=== PATIENT | male | born 1960 | race Two or more races ===

== ENCOUNTER 2024-11-18 02:12 | Inpatient (IN) | payer MEDICARE, SELFPAY ==
[2024-11-18] VITALS (120 sets, daily range): BP systolic 74–162; BP diastolic 43–83; PULSE 43–88; RESP 12–34; TEMP 35.3–36.8; O2SAT 85–100; BMI 28.6
--- NOTE | 2024-11-18 02:19 | EKG_ITS ---
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
--- NOTE | 2024-11-18 02:25 | PD.EDCPR ---
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 Per EMS, patient was found unresponsive and pulseless. Patient's contacted EMS afetr she heard patient gasping for air while asleep. Patient was in V-fib and shocked once, given 1 round of epinephrine, and Amiodarone 300 mg en route. LKWT was approximately 2200 hours when he went to bed. Patient arrived with active BVM O2 administration. No other concerns or complaints expressed at this time. Related Data Home Medications ?Medication ?Instructions ?Recorded ?Confirmed Lisinopril/Hydrochlorothiazide * 10 mg PO QAM #0 tabs 11/29/15 10/12/23 (PRINZIDE *) Previous Rx's ?Medication ?Instructions ?Recorded aspirin 81 mg tablet,delayed 81 mg PO QDAY #30 tabs 10/12/23 release atorvastatin 40 mg tablet 40 mg PO HS #30 tabs 10/12/23 clopidogrel 75 mg tablet 75 mg PO QDAY #30 tabs 10/12/23 insulin degludec 100 unit/mL (3 20 unit (0.2 mL) subcut QDAY #15 mL 10/12/23 mL) subcutaneous pen (Tresiba FlexTouch U-100 insulin) metformin 1,000 mg tablet 1,000 mg PO BID #60 tabs 10/12/23 pen needle, diabetic 31 gauge x #100 ea 10/12/23 1/ Allergies Allergy/AdvReac Type Severity Reaction Status Date / Time No Known Allergies Allergy Unverified 10/10/23 08:06 Review of Systems Review of Systems Systems Reviewed: All systems reviewed, normal except as documented Past Medical History Past Medical History CARDIAC: Positive Hypercholesterolemia and Hypertension ENDOCRINE: Positive Diabetes Mellitus Type 2 ED Exam Narrative Physical exam: GENERAL APPEARANCE: Unresponsive, BVM O2 in progress HEENT: Normocephalic, atraumatic; pupils 9 mm fixed, absent corneal reflex, lips cyanotic NECK: Supple LUNGS: No spontaneous respirations, ventilated via BVM, breath sounds clear bilaterally with ventilation HEART: Present cardiac sounds, good pulse ABDOMEN: Mildly distended; soft EXTREMITIES: atraumatic; cyanotic NEUROLOGIC: Obtunded, unresponsive, no response to painful stimuli SKIN: Cool, mottled, cyanotic Course Course Course Narrative: CXR is ordered for determining the etiology of chest pain. Quality Measures none Orders Category Date Time Status Bedside COVID-19 Antigen Test NOW Care 11/18/24 02:49 Completed Continuity Editor NOW Care 11/18/24 02:28 Active EKG (ED ONLY) *Do not use* NOW Care 11/18/24 02:19 Completed EKG (ED ONLY) *Do not use* NOW Care 11/18/24 02:28 Completed Emergency Titration Protocol Stat Care 11/18/24 04:08 Ordered Ballard [Urinary Catheter] QS Care 11/18/24 02:34 Active Insert NG / OG tube NOW Care 11/18/24 03:15 Active Intubation NOW Care 11/18/24 02:[address] head/brain wo con Stat Exams 11/18/24 03:07 Ordered EKG (ED Only) Stat Exams 11/18/24 02:19 Ordered EKG (ED Only) Stat Exams 11/18/24 02:28 Ordered XR chest 1V post procedure Stat Exams 11/18/24 02:28 Taken Arterial Blood Gas Stat Lab 11/18/24 02:47 Completed B-Type Natriuretic Peptide Stat Lab 11/18/24 02:29 Completed CBC Stat Lab 11/18/24 02:29 Completed Comprehensive Metabolic Panel Stat Lab 11/18/24 02:29 Completed Lipase Stat Lab 11/18/24 02:29 Completed Magnesium Stat Lab 11/18/24 02:29 Completed Partial Thromboplastin Time Stat Lab 11/18/24 02:29 [address] Review Blood Smear Stat Lab 11/18/24 02:29 Completed Prothrombin Time with INR Stat Lab 11/18/24 02:29 Completed Sputum Culture and Gram Stain Stat Lab 11/18/24 02:40 Received Troponin I Stat Lab 11/18/24 02:29 Completed Amiodarone 360 mg Ivpb [Nexterone Ivpb] Med 11/18/24 02:22 Active 360 mg in 200 ml IV 16.667 mls/hr Midazolam Inj [Versed Inj] Med 11/18/24 03:55 Discontinued 2 mg IVP X1 ONE Midazolam Inj [Versed Inj] Med 11/18/24 02:19 Discontinued 5 mg IVP X1 ONE Midazolam/Ns 100 mg Ivpb [Versed Pf Inj in Ns Premix] Med 11/18/24 02:22 Active 100 mg in 100 ml IV 1 mg/hr Sodium Chloride 0.9% 1000 ml [Ns] 1,000 ml Med 11/18/24 03:14 Discontinued IV 999 mls/hr Sodium Chloride 0.9% 1000 ml [Ns] 1,000 ml Med 11/18/24 03:15 Discontinued IV 999 mls/hr fentaNYL 2,500 MCG/250 ML BAG [Sublimaze Inj 2,500 MCG/ Med 11/18/24 04:11 Active 250 ML BAG] 2,500 mcg in 250 ml IV 25 mcg/hr Sputum Induction PRN RT 11/18/24 02:45 Ordered Volume Ventilator Stat RT 11/18/24 02:30 Active Vital Signs Vital signs: Vital Signs Pulse Rate 78 11/18/24 02:14 Respiratory Rate 14 11/18/24 02:14 Pulse Oximetry (%) 100 11/18/24 02:14 Oxygen Delivery Method Mechanical Ventilation 11/18/24 02:14 Fraction of Inspired Oxygen 100 11/18/24 02:14 Procedures -ED Intubation Time out performed: Yes sedative: none Laryngoscope: Robina ET Tube Size: 7.5 ET Tube Uncuffed: Yes Tube Secured Depth (cm): 24 Tube Secured Location: teeth Tube Placement Confirmation: equal breath sounds bilaterally and confirmation by capnometry Cardiac Arrest / CPR MDM Narrative MDM Narrative:: Scribe Attestation: Elizabeth Ware am scribing for and in the presence of Dr. Aguirre. Provider Notation: Although this document has been carefully reviewed, there may still be some phonetic and other typographical errors.? These errors are purely grammatical due to imperfections in the software program and should not be construed in any way to? compromise the substance of the patient's medical care during this visit. Patient data External records reviewed:: [facility] previous records (Reviewed prior ED records from 10/09/23. Patient was seen for Aspiration pneumonia.) and EMS form Clinical information provided by:: EMS Social determinants that could affect healthcare access:: none Patient has the following chronic illnesses:: Hypercholesterolemia, Hypertension, and Diabetes Mellitus Type 2 How is presenting disease/condition affected by chronic disease/condition?: exacerbated by Evaluation data The following diagnostics were reviewed and interpreted by me:: lab results, radiology exam(s) and EKG tracing(s) (EKG manual reading, my interpretation: sinus rhythm, rate: 91 bpm, occasional PVC's, no ST elevation, no acute ischemic changes, interpreted as unremarkable.) Lab and/or radiology exams considered but not ordered:: None Interpretation Summary: RADIOLOGY Pending official radiology report. Medications / Prescriptions Medications or Prescriptions considered but not ordered:: None Medication administrations:: Medication Administration History Acetaminophen (Acetaminophen 325 Mg Tablet) 650 mg PO Q6H PRN PRN Reason: PAIN OR FEVER > 101 Stop: 12/18/24 04:33 Aspirin (Aspirin Ec 81 Mg Tabec) 81 mg PO QDAY MEG Stop: 12/18/24 08:59 Dextrose (Dextrose 50%-Water Inj 50 Ml Syringe) 25 ml IV Q15MIN PRN PRN Reason: BG 50-70 responsive npo pt Stop: 12/18/24 05:10 Dextrose (Dextrose 50%-Water Inj 50 Ml Syringe) 50 ml IV Q15MIN PRN PRN Reason: BG <50 OR BG <70 & pt unresponsive Stop: 12/18/24 05:10 Glucagon (Glucagon Inj 1 Mg Vial) 1 mg IM Q15MIN PRN PRN Reason: BG <70, and no IV access Amiodarone HCl/Dextrose (Nexterone Ivpb) 360 mg in 200 mls @ 16.667 mls/hr IV .Q12H MEG Stop: 11/19/24 02:21 Last Admin: 11/18/24 02:32 Dose: 16.667 mls/hr Documented By: MACEY Midazolam HCl (Versed Pf Inj In Ns Premix) 100 mg in 100 mls @ 1 mls/hr IV .Q24H PRN; Protocol PRN Reason: PER PROTOCOL Stop: 11/23/24 02:21 Last Titration: 11/18/24 04:15 Dose: 10 mg/hr, 10 mls/hr Documented By: Titration: 11/18/24 04:10 Dose: 10 mg/hr, 10 mls/hr Documented By: Titration: 11/18/24 04:05 Dose: 10 mg/hr, 10 mls/hr Documented By: Titration: 11/18/24 04:00 Dose: 8 mg/hr, 8 mls/hr Documented By: Titration: 11/18/24 03:32 Dose: 3 mg/hr, 3 mls/hr Documented By: Titration: 11/18/24 03:27 Dose: 2 mg/hr, 2 mls/hr Documented By: Admin: 11/18/24 02:27 Dose: 1 mg/hr, 1 mls/hr Documented By: EE Co-signed By: CB Fentanyl Citrate (Sublimaze Inj 2,500 Mcg/250 Ml Bag) 2,500 mcg in 250 mls @ 2.5 mls/hr IV .Q24H PRN; Protocol PRN Reason: PER PROTOCOL Stop: 11/23/24 04:10 Last Titration: 11/18/24 04:37 Dose: 300 mcg/hr, 30 mls/hr Documented By: Titration: 11/18/24 04:32 Dose: 250 mcg/hr, 25 mls/hr Documented By: Titration: 11/18/24 04:27 Dose: 200 mcg/hr, 20 mls/hr Documented By: Admin: 11/18/24 04:22 Dose: 25 mcg/hr, 2.5 mls/hr Documented By: EE Co-signed By: CB Norepinephrine/Dextrose (Levophed In D5w 8mg/250ml) 8 mg in 250 mls @ 8.25 mls/hr IV .Q24H PRN; Protocol PRN Reason: PER PROTOCOL Stop: 12/18/24 04:52 Last Titration: 11/18/24 05:15 Dose: 0.09 mcg/kg/min, 14.849 mls/hr Documented By: Titration: 11/18/24 05:10 Dose: 0.09 mcg/kg/min, 14.849 mls/hr Documented By: Titration: 11/18/24 05:05 Dose: 0.07 mcg/kg/min, 11.55 mls/hr Documented By: Admin: 11/18/24 05:00 Dose: 0.05 mcg/kg/min, 8.25 mls/hr Documented By: MACEY Propofol (Diprivan Ivpb) 1,000 mg in 100 mls @ 2.64 mls/hr IV .Q24H PRN; Protocol PRN Reason: PER PROTOCOL Stop: 12/18/24 04:52 Last Titration: 11/18/24 05:05 Dose: 10 mcg/kg/min, 5.28 mls/hr Documented By: Admin: 11/18/24 05:00 Dose: 5 mcg/kg/min, 2.64 mls/hr Documented By: MACEY Co-signed By: RIAN Piperacillin/Tazobactam/Dextrose (Zosyn) 3.375 gm in 50 mls @ 12.5 mls/hr IV Q8HR MEG; Protocol Stop: 11/25/24 13:59 Insulin Human Lispro (Insulin Lispro (Admelog) 1 Unit/0.01 Ml Unit) 0 unit SC Q6HR MEG; Protocol Stop: 12/18/24 05:59 Ondansetron HCl (Ondansetron Inj 2 Mg/Ml Inj 2 Ml) 4 mg IV Q6H PRN; Protocol PRN Reason: NAUSEA OR VOMITING Stop: 12/18/24 04:33 Pantoprazole Sodium (Pantoprazole Inj 40 Mg Vial) 40 mg IVP QDAY MEG Stop: 12/18/24 08:59 Discontinued Medications Sodium Chloride (Ns) 1,000 mls @ 999 mls/hr IV .Q1H1M ONE Stop: 11/18/24 04:14 Last Infusion: 11/18/24 04:26 Dose: Infused Documented By: Admin: 11/18/24 03:22 Dose: 999 mls/hr Documented By: MACEY Sodium Chloride (Ns) 1,000 mls @ 999 mls/hr IV .Q1H1M ONE Stop: 11/18/24 04:15 Last Infusion: 11/18/24 04:26 Dose: Infused Documented By: Admin: 11/18/24 03:23 Dose: 999 mls/hr Documented By: MACEY Piperacillin/Tazobactam/Dextrose (Zosyn) 3.375 gm in 50 mls @ 100 mls/hr IV X1 ONE Stop: 11/18/24 05:44 Midazolam HCl (Midazolam Inj 1 Mg/Ml Vial 2 Ml) 5 mg IVP X1 ONE Stop: 11/18/24 02:20 Last Admin: 11/18/24 02:29 Dose: 5 mg Documented By: MACEY Midazolam HCl (Midazolam Inj 1 Mg/Ml Vial 2 Ml) 2 mg IVP X1 ONE Stop: 11/18/24 03:56 Last Admin: 11/18/24 04:02 Dose: 2 mg Documented By: MARYLIN Sodium Bicarbonate (Sodium Bicarb Inj 8.4% Syr 50 Ml Syringe) 50 ml IV X1 ONE Stop: 11/18/24 04:43 Last Admin: 11/18/24 05:03 Dose: 50 ml Documented By: MACEY See above if any. Consultations Consultation(s) initiated? (list below): Yes Consultation #1 (Physician, Specialty, Details): Discussed with Dr. Messina for consult. Reviewed the patient?s HPI, PMHx, lab and/or radiology results. Treatment plan was discussed. Advised Head CT. Time: 03:04 Diagnosis Cardiac arrest differential diagnosis: acute massive pulmonary embolism, acute respiratory failure, acute myocardial infarction and cardiac arrest Admission Indicated Admission indicated?: indicated Admission Request Was there a request for admission?: Yes Admission Attestation Admission request attestation: Discussed case with [] from Hospitalist service regarding admission. Discussed patients ED course, exam findings, labs, and radiology results. The Hospitalist [agrees,declines] to accept the patient for admission. Disposition Plan Disposition Plan: Admit Critical Care Time Critical Care Time Critical Care Time: Yes Total Critical Care Time (min.): 60 Attestation: The high probability of sudden, clinically significant deterioration in the patient?s condition required the highest level of my preparedness to intervene urgently. The services I provided to this patient were to treat and/or prevent clinically significant deterioration. Services included the following: chart data review, reviewing nursing notes and/or old charts, documentation time, farm consultant collaboration regarding findings and treatment options, medication orders and management, direct patient care, vital sign assessments and ordering, interpreting and reviewing diagnostic studies and lab tests. Aggregate critical care time includes only time during which I was engaged in work directly related to the patient?s care, as described above, whether at bedside or elsewhere in the Emergency Department. It did not include time spent performing other reported procedures or the services of residents, students, nurses or physician assistants. Discharge Plan Plan Patient Disposition: Admit Acute Care w/in Hospital
[2024-11-18] MEDS: MIDAZOLAM/NS 100 MG IVPB 100 MG/100 ML BAG IV (02:27)
--- NOTE | 2024-11-18 02:28 | XR_ITS ---
Examination: AP chest single view Technique one AP portable semiupright chest single view Date and time: November 18, 2024 0239 hours Comparison October 09, 2023 INDICATIONS: Post orogastric tube placement, hypoxic respiratory failure FINDINGS: Mild enlargement in cardiac contour. Prominent vascular congestion. Diffuse lung opacity. Orogastric tube tip body of the stomach. Endotracheal tube tip 4.3 cm above Maria Luisa IMPRESSION: Diffuse bilateral pneumonia Orogastric tube tip body of the stomach Endotracheal tube tip 4.3 cm above Maria Luisa
[2024-11-18] MEDS: MIDAZOLAM INJ 1 MG/ML VIAL 2 ML 5 MG IVP (02:29)
[2024-11-18] MEDS: AMIODARONE 360 MG IVPB 360 MG/200 ML BAG 16.667 MG IV (02:32)
[2024-11-18 02:38] LABS: Basophils # (Auto) 0.1 Thou/mm3 (0.0-0.2); Basophils % (Auto) 1 % (0-2.5); Eosinophils # (Auto) 0.2 Thou/mm3 (0.0-0.5); Eosinophils % (Auto) 1 % (0-10); Hemoglobin 12.9 g/dL (13.5-16.0); Immature Granulocytes % (Auto) 7 % (0-0); Immature Granulocytes Auto 0.81 Thou/mm3 (0.00-0.00); Lymphocytes # (Auto) 7.2 Thou/mm3 (1.0-4.8); Lymphocytes % (Auto) 59 % (10-50); Mean Corpuscular HGB Conc 33.9 g/dl (31.0-37.0); Mean Corpuscular Hemoglobin 32.3 pg (25.0-35.0); Mean Corpuscular Volume 95 fL (80-100); Monocytes # (Auto) 0.4 Thou/mm3 (0.0-0.8); Monocytes % (Auto) 4 % (0-12); Neutrophils # (Auto) 3.5 Thou/mm3 (1.8-7.7); Neutrophils % (Auto) 29 % (37-80); Nucleated Red Blood Cell # 0.06 Thou/mm3 (0.00-0.00); Nucleated Red Blood Cell % 1 /100 WBC (0); Platelet Count 116 Thou/mm3 (140-440); RDW Standard Deviation 45.9 fL (35.1-43.9); Red Blood Count 3.99 Miln/mm3 (4.50-5.90); White Blood Count 12.1 Thou/mm3 (3.8-10.6)
[2024-11-18 02:49] LABS: Path Review Blood Smear Sent to Pathologist
[2024-11-18 02:55] LABS: Base Excess -7 (-3-3); HCO3 21 mEq/L (20-26); O2 Saturation 97 % (91-98); PCO2 54 mmHg (32.0-48.0); PO2 108 mmHg (83-108); pH, Arterial 7.21 (7.35-7.45)
[2024-11-18 02:56] LABS: Allen Test Performed/OK; Inspired Oxygen, FIO2 100 %; Puncture Site Right Radial
[2024-11-18 02:57] LABS: INR 1.2 (0.9-1.3); Prothrombin Time 12.6 Seconds (9.0-12.2)
[2024-11-18 03:00] LABS: B-Type Natriuretic Peptide 91 pg/mL (0-100)
[2024-11-18 03:04] LABS: Alanine Aminotransferase 923 U/L (10-49); Albumin, Serum 3.6 gm/dL (3.4-4.8); Albumin/Globulin Ratio 2.1 (1.2-2.2); Alkaline Phosphatase 134 U/L (46-116); Anion Gap 14 (7-16); Aspartate Amino Transferase 813 U/L (0-34); BUN/Creatinine Ratio 16 Ratio (12-20); Bilirubin,Total 0.5 mg/dL (0.3-1.2); Blood Urea Nitrogen 23 mg/dL (9-23); Calcium (Corrected) 8.3 mg/dL (8.5-10.1); Carbon Dioxide 19.3 mMol/L (20.0-31.0); Chloride 107 mMol/L (98-107); Creatinine (Component) 1.4 mg/dL (0.6-1.3); Globulin 1.7 gm/dL (2.3-3.5); Glucose 274 mg/dL (74-106); Lipase 59 U/L (12-53); Magnesium 1.8 mg/dL (1.6-2.6); Osmolality,Calculated 293 (275-295); Potassium 3.9 mMol/L (3.4-5.1); Sodium 140 mMol/L (136-145); Total Protein 5.3 gm/dL (5.7-8.2); eGFR 55 See Note
--- NOTE | 2024-11-18 03:07 | XR_ITS ---
Examination: CT brain head without contrast. 2-D sagittal coronal reconstructions Date and time of exam:November 18, 2024 0542 hours, comparison October 09, 2023 INDICATIONS: Altered mental status today CTDI: vol (mGy):52 DLP: (mGycm):1084 Technique: Multiple CT axial sections of the brain have been obtained, 5 mm slice thickness. Contrast has not been administered. 2-D sagittal, coronal reconstructions have been obtained Low dose protocols were performed. One or more of the following dose reduction techniques were used; automated exposure control, adjustment of the mA and/or KV according to patient size, use of iterative reconstruction technique. Findings: No significant ventricular enlargement. Intra-axial or extra-axial hemorrhage density is not seen. No mass effect or midline shift Basal cisterns are not remarkable. Fourth ventricle is midline. Cranial vault intact. Pansinusitis Impression: Negative for acute hemorrhage, mass effect or midline shift Advise clinical correlation and follow up accordingly
[2024-11-18 03:08] LABS: Troponin I 0.269 ng/mL (0.0-0.045)
[2024-11-18] MEDS: SODIUM CHLORIDE 0.9% 1000 ML 1,000 ML 999 ML IV ×2 (03:22→03:23)
[2024-11-18] MEDS: MIDAZOLAM INJ 1 MG/ML VIAL 2 ML 2 MG IVP (04:02)
[2024-11-18] MEDS: fentaNYL 2,500 MCG/250 ML BAG 2,500 MCG/250 ML BAG IV (04:22)
--- NOTE | 2024-11-18 04:49 | PD.RESHP ---
Documentation for date of: 11/18/24 [facility] History of Present Illness History of present illness: Patient is a 64-year-old male with a past medical history of hypertension and diabetes mellitus, prior history of cardiac arrest in 2023, who was brought in by ambulance after fqz-wi-jikqltgl cardiac arrest. noticed the patient to be gasping for air, and called ambulance, CPR was initiated en route by EMS, patient was found to have V-fib, shock was given, in the emergency room patient was given epinephrine x 1, started on amiodarone, ROSC was achieved after 1 cycle of CPR, patient was intubated and started on mechanical ventilation. Given 2 L IV fluid boluses, initial labs showed leukocytosis, metabolic acidosis on ABG, YEN, creatinine 1.4, transferred, and ischemia, troponinemia, lipase 59. Patient later became hypotensive, after starting IV sedation, was started on Levophed, patient was admitted to ICU for further management. Per , patient had similar presentation last year, with [id number] cardiac arrest, with ROSC achieved following CPR in emergency room, patient was discharged on aspirin and Plavix. Per , patient is compliant with his medications, current medications include clopidogrel, lisinopril, metformin and glipizide. Denies any history of heart failure, myocardial infarction, recent fever or illness, diarrhea or seizures. Review of Systems Review of Systems ROS Unobtainable: unobtainable due to mental status Past Medical History Past Medical History NEUROLOGIC: Negative Seizures CARDIAC: Positive Hypercholesterolemia and Hypertension; Negative Congestive Heart Failure RESPIRATORY: Negative Chronic Obstructive Pulmonary Disease (COPD) GASTROINTESTINAL: Negative Gastrointestinal Disorders GENITOURINARY: Negative Renal Disease REPRODUCTIVE: Negative Breast Cancer MUSCULOSKELETAL: Negative Musculoskeletal Disorders ENDOCRINE: Positive Diabetes Mellitus Type 2; Negative Diabetes Mellitus Type 1 HEMATOLOGIC: Negative Anemia OTHER HISTORY: Negative Autoimmune Disease, Blood Transfusions, Blood Transfusion Reaction, Anesthesia Reactions or Breast Cancer Social History SMOKING STATUS: Unknown if ever smoked Exam Vital Signs Temp Pulse Resp BP Pulse Ox O2 Del Method FiO2 95.5 F L 64 25 H 84/48 L 95 Mechanical Ventilation 100 11/18/24 02:15 11/18/24 03:29 11/18/24 03:00 11/18/24 03:29 11/18/24 03:29 11/18/24 03:00 11/18/24 03:29 Narrative Exam General: Sedated, intubated and mechanically ventilated Skin: Intact, no cyanosis or edema noted. HEENT: Atraumatic/normocephalic, RIGO, neck supple Heart: RRR, S1 and S2 without clicks or murmurs Lungs: Bilateral rhonchi on auscultation Abdomen: Soft, nontender. Bowel sounds present . Vascular: Peripheral pulses palpable Neuro: Unable to assess due to sedation Results: Labs 11/18/24 02:29 11/18/24 02:29 Labs: Short CBC 11/18/24 Range/Units 02:29 WBC 12.1 H (3.8-10.6) Thou/mm3 Hgb 12.9 L (13.5-16.0) g/dL Hct 38.0 L (41.0-53.0) % Plt Count 116 L (140-440) Thou/mm3 BMP 11/18/24 02:29 Sodium 140 Potassium 3.9 Chloride 107 Carbon Dioxide 19.3 L BUN 23 Creatinine 1.4 H Glucose 274 H Calcium 8.0 L Cardiac Enzymes 11/18/24 Range/Units 02:29 Troponin I 0.269 H* (0.0-0.045) ng/mL Liver Function 11/18/24 Range/Units 02:29 Total Bilirubin 0.5 (0.3-1.2) mg/dL AST 813 H* (0-34) U/L ALT 923 H* (10-49) U/L Alkaline Phosphatase 134 H (46-116) U/L Albumin 3.6 (3.4-4.8) gm/dL ABG Interpretation ABG results: 11/18/24 02:47 ABG pH 7.21 L ABG pCO2 54 H ABG pO2 108 ABG HCO3 21 ABG O2 Saturation 97 ABG Base Excess -7 L Quality Measures Quality Measures none Advance care planning discussed with:: spouse Medications Home Medications and Allergies Home Medications ?Medication ?Instructions ?Recorded ?Confirmed ?Type Lisinopril/Hydrochlorothiazide * 10 mg PO QAM #0 tabs 11/29/14 10/12/23 History (PRINZIDE *) Allergies Allergy/AdvReac Type Severity Reaction Status Date / Time No Known Allergies Allergy Unverified 10/10/23 08:06 Visit Medications Acetaminophen (Acetaminophen 325 Mg Tablet) 650 mg PO Q6H PRN PRN Reason: PAIN OR FEVER > 101 Stop: 12/18/24 04:33 Aspirin (Aspirin Ec 81 Mg Tabec) 81 mg PO QDAY [facility] Stop: 12/18/24 08:59 Amiodarone HCl/Dextrose (Nexterone Ivpb) 360 mg in 200 mls @ 16.667 mls/hr IV .Q12H MEG Stop: 11/19/24 02:21 Last Admin: 11/18/24 02:32 Dose: 16.667 mls/hr Midazolam HCl (Versed Pf Inj In Ns Premix) 100 mg in 100 mls @ 1 mls/hr IV .Q24H PRN; Protocol PRN Reason: PER PROTOCOL Stop: 11/23/24 02:21 Last Titration: 11/18/24 04:15 Dose: 10 mg/hr, 10 mls/hr Fentanyl Citrate (Sublimaze Inj 2,500 Mcg/250 Ml Bag) 2,500 mcg in 250 mls @ 2.5 mls/hr IV .Q24H PRN; Protocol PRN Reason: PER PROTOCOL Stop: 11/23/24 04:10 Last Titration: 11/18/24 04:37 Dose: 300 mcg/hr, 30 mls/hr Ondansetron HCl (Ondansetron Inj 2 Mg/Ml Inj 2 Ml) 4 mg IV Q6H PRN; Protocol PRN Reason: NAUSEA OR VOMITING Stop: 12/18/24 04:33 Sodium Bicarbonate (Sodium Bicarb Inj 8.4% Syr 50 Ml Syringe) 50 ml IV X1 ONE Stop: 11/18/24 04:43 Discontinued Medications Sodium Chloride (Ns) 1,000 mls @ 999 mls/hr IV .Q1H1M ONE Stop: 11/18/24 04:14 Last Infusion: 11/18/24 04:26 Dose: Infused Sodium Chloride (Ns) 1,000 mls @ 999 mls/hr IV .Q1H1M ONE Stop: 11/18/24 04:15 Last Infusion: 11/18/24 04:26 Dose: Infused Midazolam HCl (Midazolam Inj 1 Mg/Ml Vial 2 Ml) 5 mg IVP X1 ONE Stop: 11/18/24 02:20 Last Admin: 11/18/24 02:29 Dose: 5 mg Midazolam HCl (Midazolam Inj 1 Mg/Ml Vial 2 Ml) 2 mg IVP X1 ONE Stop: 11/18/24 03:56 Last Admin: 11/18/24 04:02 Dose: 2 mg 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 - Pending CT head to rule out intracranial hemorrhage. ? Initially started on Versed and fentanyl, as patient continues to be agitated and overbreathing the vent, introduced propofol with inotropic support Respiratory # Intubation and mechanical ventilation for airway protection # Acute hypoxic and hypercapneac respiratory failure # Metabolic acidosis -2/2 cardiac arrest - Currently on AC mode, patient noted to be overbreathing ventilator, respiratory rate more than 40/min, likely due to metabolic acidosis post cardiac arrest. - will start on zosyn to cover for aspiration PNA ? Ordered CT angiogram to rule out pulmonary embolism CVS # Cardiogenic shock # NSTEMI # Out of hospital Cardiac arrest secondary to V-fib - Ftx-hg-veymexvy cardiac arrest likely secondary to NSTEMI, noted troponin elevation, will trend troponins, per ER, patient rhythm was ventricular fibrillation on arrival, received 1 round of epi and defibrillation, ROSC was achieved. Consulted dialysis social worker Dr. Morales. Patient would likely benefit from coronary angiogram and/or ICD placement. ? Troponin every 6 hourly, if continued uptrending troponin, will start heparin drip. ? Pin Machine Tender Dr. Sierra Morales is consulted, appreciate recommendations ? Echocardiogram ordered ? Aspirin 81 mg daily ? Inotropic support with Levophed, patient required Levophed after initiating sedation. GI # Shock liver - Likely secondary to hypotension following cardiac arrest ? Will hold off on atorvastatin at this point, due to elevated transaminases. Renal # Metabolic acidosis. # YEN - Likely secondary to cardiogenic shock leading to prerenal acute kidney injury and metabolic acidosis. ?Sodium bicarb 50 mEq x 1 given, will repeat if continued metabolic acidosis ?Strict input and output Endo #DM Type II - Patient takes glipizide at home. ? Sliding scale insulin ? Hypoglycemic protocol in place ? Follow A1c Heme #Normocytic anemia -likely acute, monitor ID # Possible aspiration PNA -will start on Zosyn Disposition: ICU DVT prophylaxis: Heparin subcut GI prophylaxis: protonix Diet: npo Lines: PIV CODE STATUS: Full Patient case discussed with attending Dr. Siddharth Morris PGY2 Attending Provider Attestation/Addendum I reviewed labs, imaging, EKG, home medications and prior available records. Face to face evaluation was performed by me. I have personally examined the patient and discussed assessment and plan with the IM team. I reviewed the resident note and agree with the plan with exceptions as below. Unresponsiveness Cardiac arrest status post ROSC Shock, possibly cardiac after cardiac arrest Non-STEMI Acute liver injury/shock liver Type [address] head is negative for acute changes Patient is sedated/intubated Started the patient on Levophed Ordered echocardiogram Resume aspirin Trend troponin Held atorvastatin in setting of transaminitis Monitor LFTs Start insulin therapy and monitor fingersticks Consult cardiology Critical care time is 65 minutes
--- NOTE | 2024-11-18 04:53 | PC.NURSE ---
SPOKE TO DR MENDOZA VIA TELEPHONE AND INFORMED HIM PT'S SEDATIONS ARE MAXED OUT, ALSO INFORMED HIM PT'S BP:93/54 MAP67. HR:54. NEW ORDERS GIVEN VIA TELEPHONE TO START PT ON LEVOPHED, AND PROPOFOL GTT.
[2024-11-18] MEDS: PROPOFOL 1,000 MG IVPB 1,000 MG/100 ML VIAL 2.64 MG IV (05:00)
[2024-11-18] MEDS: Norepinephrine/D5W 8mg/250ml 8 MG/250 ML BAG 8.25 MG IV (05:00)
[2024-11-18] MEDS: Sodium Bicarb Inj 8.4% SYR 50 ML SYRINGE IV (05:03)
--- NOTE | 2024-11-18 05:17 | XR_ITS ---
Examination: CTA chest with intravenous contrast 2-D reconstructions 3-D reconstructions, vascular Date and time of exam: November 18, 2024 at 0553 hours, comparison October 09, 2023 INDICATIONS: Chest pain and shortness of breath today, hypoxic respiratory failure postintubation CTDI: vol (mGy) 56 DLP: (mGycm) 712 Technique: Multiple axial sections of the thorax have been obtained. 3 mm slice thickness, from below the hemidiaphragms to above the apices of the lungs. Mediastinal and lung density settings have been obtained. 2-D sagittal and coronal reconstructions. 3-D angiographic renderings, 3-D volume renderings, 3D post processing, vascular maximum intensity projections obtained. Contrast administered is 95 cc. Isovue 370 intravenous Low dose protocols were performed. One or more of the following dose reduction techniques were used; automated exposure control, adjustment of the mA and/or KV according to patient size, use of iterative reconstruction technique. Findings: No thoracic aortic aneurysmal dilatation. Pulmonary artery segments are not enlarged No pulmonary artery filling defects Tracheal tube tip 22 mm above the alex Mild to moderate vascular congestion Extensive bibasilar pneumonia, consider aspiration pneumonia Orogastric tube in the stomach. No visualized liver or splenic lesion Small gallstones No pancreatic mass No hydronephrosis Prominent osteopenia IMPRESSION: Negative for pulmonary artery emboli Extensive bibasilar pneumonia, consider aspiration pneumonia Cholelithiasis
[2024-11-18 05:18] LABS: Base Excess -3 (-3-3); HCO3 24 mEq/L (20-26); Inspired Oxygen, FIO2 100 %; O2 Saturation 98 % (91-98); PCO2 48 mmHg (32.0-48.0); PO2 114 mmHg (83-108)
[2024-11-18 05:19] LABS: Allen Test Performed/OK; Puncture Site Right Brachial
--- NOTE | 2024-11-18 05:20 | ECHO_ITS ---
Transthoracic Echo Report Ht (in): 69 Wt (lb): 194 Exam Location: Echo Lab Status: Inpatient Blocker And Polisher Gold Wheel: Bailee Wright Indications: Procedure Performed: BP: 118 / 55 HR: 60 MEASUREMENTS (Male / Female) Normal Values 2D ECHO LV Diastolic Diameter PLAX 4.5 cm 4.2 - 5.9 / 3.9 - 5.3 cm LV Systolic Diameter PLAX 3.7 cm IVS Diastolic Thickness 1.0 cm 0.6 - 1.0 / 0.6 - 0.9 cm LVPW Diastolic Thickness 0.9 cm 0.6 - 1.0 / 0.6 - 0.9 cm LV Relative Wall Thickness 0.4 LVOT Diameter 2.2 cm Aortic Root Diameter 3.5 cm LA Systolic Diameter LX 2.3 cm 3.0 - 4.0 / 2.7 - 3.8 cm LV Ejection Fraction MOD BP 48.4 % >= 55 % LV Cardiac Index MOD BP 1515.9 cm?/min?m? LV Ejection Fraction MOD 4C 46.2 % LV Cardiac Index MOD 4C 1320.7 cm?/min?m? LV Ejection Fraction 4C AL 46.5 % LV Cardiac Index 4C AL 1372.8 cm?/min?m? LV Ejection Fraction MOD 2C 55.7 % LV Cardiac Index MOD 2C 1837.5 cm?/min?m? LV Ejection Fraction 2C AL 56.0 % LV Cardiac Index 2C AL 1867.4 cm?/min?m? LA Volume Index 21.1 cm?/m? 16 - 28 cm?/m? M-MODE Aortic Root Diameter MM 3.4 cm AV Cusp Separation MM 2.1 cm DOPPLER AV Peak Velocity 122.0 cm/s AV Peak Gradient 6.0 mmHg AV Mean Gradient 3.0 mmHg AV Velocity Time Integral 22.5 cm LVOT Peak Velocity 99.8 cm/s LVOT Peak Gradient 4.0 mmHg LVOT Velocity Time Integral 15.6 cm LVOT Cardiac Index 1702.6 cm?/min?m? AV Area Cont Eq vti 2.6 cm? AV Area Cont Eq pk 3.1 cm? TR Peak Velocity 254.0 cm/s TR Peak Gradient 25.8 mmHg PV Peak Velocity 103.0 cm/s PV Peak Gradient 4.2 mmHg FINDINGS Left Ventricle Normal left ventricular size, wall thickness with septal apical hypokinesis.The ejection fraction is visually estimated at 40%. Right Ventricle The right ventricular size is mildy increased with normal systolic function. The estimated right ventricular systolic pressure, 36 mmHg. RAP 10. Left Atrium The left atrium is normal by two-dimensional, color flow and Doppler imaging with no structural abnormalities, no thrombus formation present. Right Atrium The right atrium is normal by two-dimensional imaging, color flow and Doppler imaging with no structural abnormalities, no thrombus formation present. Atrial Septum The interatrial septum appears normal with no evidence of a shunt. Aorta The aorta is normal by two-dimensional, color flow and Doppler interrogation. Mitral Valve The mitral valve is normal by two-dimensional, color flow and Doppler interrogation. Trace mitral regurgitation. Aortic Valve The aortic valve is trileaflet and normal by two-dimensional, color flow and Doppler interrogation. There is no significant aortic valve regurgitation. Tricuspid Valve The tricuspid valve is normal by two-dimensional, color flow and Doppler interrogation.there is trace tricuspid valve regurgitation. Pulmonic Valve The pulmonic valve is not well visualized. There is no significant pulmonic valve regurgitation. Vessels The pulmonary artery appears normal. The inferior vena cava pulmonary and hepatic veins appear normal. Pericardium The pericardium is normal by two-dimensional imaging. There is no significant pericardial effusion. CONCLUSIONS Indication: Cardiac arrest Normal LV size, wall thickness wirh septal and apical hypokinbesis. Estimated EF at 40- %. The RV size is mildy increased with normal systolic function. The estimated RVSP, 36 mmHg. RAP 10. Trace MR and TR. Sangeeta Madrigal (Electronically Signed) Final Date: 19 November 2024 14:38
[2024-11-18] MEDS: PIPER/TAZO 3.375 GM PREMIX 3.375 GM/50 ML BAG IV (06:42)
[2024-11-18] MEDS: INSULIN LISPRO (AdmeLOG) 1 UNIT/0.01 ML UNIT SC ×3 (06:42→17:34)
--- NOTE | 2024-11-18 06:43 | XR_ITS ---
Examination: Abdomen sonogram, Limited Date and time of exam: November 18, 2024, 0816 hrs. Indications: Elevated liver function tests on laboratory examination 07/21/2024. Technique: Real-time mcmanus scale transabdominal sonographic images of the upper abdomen obtained. Findings: Multiple gallstones Gallbladder wall 0.3 cm Normal common bile duct 0.3 cm Pancreatic head 2.4 cm Liver 14.6 cm no focal liver lesions Normal hepatopedal portal venous oh Patent IVC Impression: Cholelithiasis, negative for cholecystitis
[2024-11-18 07:16] LABS: Lactate (Lactic Acid) 3.2 mMol/L (0.4-2.0)
[2024-11-18 07:24] LABS: Basophils % (Auto) 0 % (0-2.5); Eosinophils % (Auto) 0 % (0-10); Hematocrit 36.7 % (41.0-53.0); Hemoglobin 12.5 g/dL (13.5-16.0); Immature Granulocytes % (Auto) 2 % (0-0); Immature Granulocytes Auto 0.17 Thou/mm3 (0.00-0.00); Lymphocytes # (Auto) 1.1 Thou/mm3 (1.0-4.8); Lymphocytes % (Auto) 11 % (10-50); Mean Corpuscular HGB Conc 34.1 g/dl (31.0-37.0); Mean Corpuscular Hemoglobin 32.6 pg (25.0-35.0); Mean Corpuscular Volume 96 fL (80-100); Monocytes # (Auto) 0.4 Thou/mm3 (0.0-0.8); Monocytes % (Auto) 4 % (0-12); Neutrophils # (Auto) 8.3 Thou/mm3 (1.8-7.7); Neutrophils % (Auto) 83 % (37-80); Nucleated Red Blood Cell % 0 /100 WBC (0); Platelet Count 128 Thou/mm3 (140-440); RDW Standard Deviation 46.5 fL (35.1-43.9); Red Blood Count 3.83 Miln/mm3 (4.50-5.90)
[2024-11-18 07:36] LABS: INR 1.2 (0.9-1.3); Prothrombin Time 12.8 Seconds (9.0-12.2)
[2024-11-18] MEDS: Magnesium Sulfate 2 GM Ivpb 2 GM/50 ML BAG IV ×2 (07:51→15:42)
[2024-11-18] MEDS: RINGERS LACTATED 1000 ML 500 ML 999 ML IV (07:52)
[2024-11-18 07:58] LABS: Alanine Aminotransferase 795 U/L (10-49); Albumin, Serum 3.3 gm/dL (3.4-4.8); Alkaline Phosphatase 115 U/L (46-116); Anion Gap 10 (7-16); Aspartate Amino Transferase 951 U/L (0-34); BUN/Creatinine Ratio 19 Ratio (12-20); Bilirubin,Direct 0.3 mg/dL (0.0-0.3); Bilirubin,Total 0.8 mg/dL (0.3-1.2); Blood Urea Nitrogen 29 mg/dL (9-23); Calcium 7.5 mg/dL (8.3-10.6); Carbon Dioxide 23.1 mMol/L (20.0-31.0); Cardiac Risk Estimate 2.2 RATIO (4.0-6.7); Chloride 106 mMol/L (98-107); Cholesterol 104 mg/dL (132-200); Creatinine (Component) 1.5 mg/dL (0.6-1.3); Estimated Creatinine Clearance 48.4 mL/min (>60); Glucose 348 mg/dL (74-106); HDL Cholesterol 48 mg/dL (40-60); LDL Cholesterol,Calculated 34 mg/dL (0-130); Magnesium 1.6 mg/dL (1.6-2.6); Osmolality,Calculated 297 (275-295); Phosphorous 4.2 mg/dL (2.4-5.1); Potassium 5.1 mMol/L (3.4-5.1); Sodium 139 mMol/L (136-145); Thyroid Stimulating Hormone 1.56 uIU/mL (0.55-4.78); Total Protein 4.8 gm/dL (5.7-8.2); Triglycerides 111 mg/dL (30-150); eGFR 51 See Note
[2024-11-18 08:00] LABS: Troponin I 3.849 ng/mL (0.0-0.045)
--- NOTE | 2024-11-18 08:30 | XR_ITS ---
Examination: AP chest single view Technique one AP portable semiupright chest single view Date and time: 2024 0904 hrs. Comparison 07/21/2024 0239 hrs. Indications: Hemoptysis Findings: Diffuse bilateral lung opacity Mild enlargement cardiac contour The orogastric tube tip is below the level film Tracheal tube tip 4.4 cm above alex Impression: Bilateral pneumonia Mild associated heart failure
[2024-11-18 09:06] LABS: Partial Thromboplastin Time 23.8 Seconds (22.0-36.0)
[2024-11-18] MEDS: PANTOPRAZOLE INJ 40 MG VIAL IVP (09:26)
[2024-11-18] MEDS: PATIROMER CALCIUM 8.4 GM PACKET (NON-FORM) GT (09:40)
[2024-11-18 09:58] LABS: Troponin I 5.692 ng/mL (0.0-0.045)
[2024-11-18 10:13] LABS: Reflex Lactate? Y
--- NOTE | 2024-11-18 11:04 | PC.SS ---
Patient is a 64YO male, reason for visit: CARDIAC ARREST. Patient is Martiniquais speaking. Patient unable to provide information. Demographic information provided and confirmed by his spouse, Davis Nguyễn. Patient?s Primary Medical Surrogate Decision Maker is his daughter, Neda Nguyễn [phone] Prior to hospitalization, patient was independent with both ADLs and ambulation. Pharmacy: [facility] PCP: Solomon. Last. appt. was October 2024. Next of kin: Daughter Neda Nguyễn [phone] Discharge plan: TBD
[2024-11-18] MEDS: SODIUM CHLORIDE 0.45% IV (11:10)
[2024-11-18] MEDS: SODIUM BICARB IV (11:10)
[2024-11-18 11:11] LABS: Lactic Acid, 3 HR 3.5 mMol/L (0.4-2.0)
--- NOTE | 2024-11-18 11:11 | ESPR_ITS ---
<Statement entered by Pb Cedillo MD - 11/19/24 12:28> bedside echo shows nl EF. Start dopamine for bradycardia. no heart block. awaiting cardiology consult Cumulative time spent in management is 45 minutes Documentation for date of: 11/18/24 Subjective Subjective Interval history: Mr Nguyễn is a 64-year-old male with a past medical history of hypertension and diabetes mellitus, prior history of cardiac arrest in 2023, who was brought in by ambulance after [id number] cardiac arrest. noticed the patient to be gasping for air, and called ambulance, CPR was initiated en route by EMS, patient was found to have V-fib, shock was given, in the emergency room patient was given epinephrine x 1, started on amiodarone, ROSC was achieved after 1 cycle of CPR, patient was intubated and started on mechanical ventilation. Given 2 L IV fluid boluses, initial labs showed leukocytosis, metabolic acidosis on ABG, YEN, creatinine 1.4, transferred, and ischemia, troponinemia, lipase 59. Patient later became hypotensive, after starting IV sedation, was started on Levophed, patient was admitted to ICU for further management. Per , patient had similar presentation last year, with [id number] cardiac arrest, with ROSC achieved following CPR in emergency room, patient was discharged on aspirin and Plavix. Per , patient is compliant with his medications, current medications include clopidogrel, lisinopril, metformin and glipizide. Denies any history of heart failure, myocardial infarction, recent fever or illness, diarrhea or seizures. 11/18/2024: Patient was seen and examined at bedside this AM. Patient sedated, on mechanical ventilation and pressure support. MV settings: AC RR 20, TV 400, FiO2 70 and PEEP 10. Patient had sanguinous discharge in the ET tube on suction around 8am, is not on any AC at this time. Coag panel fairly normal. CT chest showed atelectasis of lower lobes bilaterally, severe ARDS. Cardiology is consulted for VFib and cardiogenic shock, will evaluate patient in the afternoon. Bedside echo showed good LVEF, no pericardial fluid. Patient is minimally responsive to stimuli even after brining down RAAS to -1. Family meeting for [facility] held around 10am, syriac translation used (ID: [id number]). Family counseled on poor prognosis, showed full comprehension. Will continue to monitor in ICU on levophed, fentanyl and propofol gtt, and will follow up cardio recs. Exam Vital Signs Temp Pulse Resp BP Pulse Ox O2 Del Method FiO2 97.7 F 52 L 19 93/57 L 100 Mechanical Ventilation 70 11/18/24 08:00 11/18/24 10:18 11/18/24 10:15 11/18/24 10:18 11/18/24 10:18 11/18/24 04:55 11/18/24 10:18 Narrative Exam Constitutional Sedated, agonal breathing Drips: Levophed, Fentanyl, Propofol HEENT Pupils: constricted, non reactive to light. Intubated on MV : AC VT 400, RR 20, PEEP 10 and FiO2 70 Respiratory Chest normal on inspection and clear to auscultation bilaterally. Cardiovascular S1 and S2 audible, RRR. No murmurs or carotid bruit. No gross JVD. Amio gtt Abdominal Soft and BS + , mildly distended. Musculoskeletal Extremities tone within normal limits. No LE edema. Neurological Unable to assess motor and sensory function. Skin Distal extremities- cold and clammy. Objective Labs 11/18/24 06:57 11/18/24 13:37 Labs: Laboratory Results - last 24 hr 11/18/24 11/18/24 11/18/24 02:29 02:47 05:11 WBC 12.1 H RBC 3.99 L Hgb 12.9 L Hct 38.0 L MCV 95 MCH 32.3 MCHC 33.9 RDW Std Deviation 45.9 H Plt Count 116 L Neut % (Auto) 29 L Lymph % (Auto) 59 H [place] % (Auto) 4 Eos % (Auto) 1 Baso % (Auto) 1 Neut # (Auto) 3.5 Lymph # (Auto) 7.2 H [place] # (Auto) 0.4 Eos # (Auto) 0.2 Baso # (Auto) 0.1 Immature Gran # (Auto) 0.81 H Absolute Nucleated RBC 0.06 H Immature Gran % 7 H Nucleated RBC % 1 H Smear Path Review Sent to Pathologist PT 12.6 H INR 1.2 APTT 28.0 Puncture Site Right Radial Right Brachial ABG pH 7.21 L 7.30 L ABG pCO2 54 H 48 ABG pO2 108 114 H ABG HCO3 21 24 ABG O2 Saturation 97 98 ABG Base Excess -7 L -3 FiO2 100 100 Sodium 140 Potassium 3.9 Chloride 107 Carbon Dioxide 19.3 L Anion Gap 14 BUN 23 Creatinine 1.4 H Estim Creat Clear Calc 57.0 L eGFR 55 L BUN/Creatinine Ratio 16 Glucose 274 H Calculated Osmolality 293 Lactic Acid Calcium 8.0 L Corrected Calcium 8.3 L Phosphorus Magnesium 1.8 Total Bilirubin 0.5 Direct Bilirubin AST 813 H* ALT 923 H* Alkaline Phosphatase 134 H Troponin I 0.269 H* B-Natriuretic Peptide 91 Total Protein 5.3 L Albumin 3.6 Globulin 1.7 L Albumin/Globulin Ratio 2.1 Triglycerides Cholesterol LDL Cholesterol, Calc HDL Cholesterol Cholesterol/HDL Ratio Lipase 59 H TSH 11/18/24 11/18/24 06:57 09:14 WBC 10.0 RBC 3.83 L Hgb 12.5 L Hct 36.7 L MCV 96 MCH 32.6 MCHC 34.1 RDW Std Deviation 46.5 H Plt Count 128 L Neut % (Auto) 83 H Lymph % (Auto) 11 [place] % (Auto) 4 Eos % (Auto) 0 Baso % (Auto) 0 Neut # (Auto) 8.3 H Lymph # (Auto) 1.1 [place] # (Auto) 0.4 Eos # (Auto) 0.0 Baso # (Auto) 0.0 Immature Gran # (Auto) 0.17 H Absolute Nucleated RBC 0.00 Immature Gran % 2 H Nucleated RBC % 0 Smear Path Review PT 12.8 H INR 1.2 APTT 23.8 Puncture Site ABG pH ABG pCO2 ABG pO2 ABG HCO3 ABG O2 Saturation ABG Base Excess FiO2 Sodium 139 Potassium 5.1 D Chloride 106 Carbon Dioxide 23.1 Anion Gap 10 BUN 29 H Creatinine 1.5 H Estim Creat Clear Calc 48.4 L eGFR 51 L BUN/Creatinine Ratio 19 Glucose 348 H D Calculated Osmolality 297 H Lactic Acid 3.2 H Calcium 7.5 L Corrected Calcium Phosphorus 4.2 Magnesium 1.6 Total Bilirubin 0.8 Direct Bilirubin 0.3 AST 951 H* ALT 795 H* Alkaline Phosphatase 115 Troponin I 3.849 H* D 5.692 H* D B-Natriuretic Peptide Total Protein 4.8 L Albumin 3.3 L Globulin Albumin/Globulin Ratio Triglycerides 111 Cholesterol 104 L LDL Cholesterol, Calc 34 HDL Cholesterol 48 Cholesterol/HDL Ratio 2.2 L Lipase TSH 1.56 ABG Interpretation ABG results: 11/18/24 11/18/24 02:47 05:11 ABG pH 7.21 L 7.30 L ABG pCO2 54 H 48 ABG pO2 108 114 H ABG HCO3 21 24 ABG O2 Saturation 97 98 ABG Base Excess -7 L -3 Quality Measures Quality Measures none Advance care planning discussed with:: spouse, child, legal surragate and other Assessment & Plan Assessment Current Active Medications: Generic Name Dose Route Start Last Admin Trade Name Freq PRN Reason Stop Dose Admin Acetaminophen 650 mg 11/18/24 04:34 Acetaminophen 325 Mg Tablet PO 12/18/24 04:33 Q6H PRN PAIN OR FEVER > 101 Aspirin 81 mg 11/18/24 09:00 11/18/24 09:40 Aspirin Ec 81 Mg Tabec PO 12/18/24 08:59 Not Given QDAY MEG Dextrose 25 ml 11/18/24 05:11 Dextrose 50%-Water Inj 50 Ml Syringe IV 12/18/24 05:10 Q15MIN PRN BG 50-70 responsive npo pt Dextrose 50 ml 11/18/24 05:11 Dextrose 50%-Water Inj 50 Ml Syringe IV 12/18/24 05:10 Q15MIN PRN BG <50 OR BG <70 & pt unresponsive Glucagon 1 mg 11/18/24 05:11 Glucagon Inj 1 Mg Vial IM Q15MIN PRN BG <70, and no IV access Amiodarone HCl/Dextrose 360 mg in 200 mls @ 16.667 mls/hr 11/18/24 02:22 11/18/24 02:32 Nexterone Ivpb IV 11/19/24 02:21 16.667 mls/hr .Q12H MEG Administration Midazolam HCl 100 mg in 100 mls @ 1 mls/hr 11/18/24 02:22 11/18/24 06:25 Versed Pf Inj In Ns Premix IV 11/23/24 02:21 0 mg/hr .Q24H PRN 0 mls/hr PER PROTOCOL Titration Protocol 1 MG/HR Fentanyl Citrate 2,500 mcg in 250 mls @ 2.5 mls/hr 11/18/24 04:11 11/18/24 09:00 Sublimaze Inj 2,500 Mcg/250 Ml Bag IV 11/23/24 04:10 125 mcg/hr .Q24H PRN 12.5 mls/hr PER PROTOCOL Titration Protocol 25 MCG/HR Norepinephrine/Dextrose 8 mg in 250 mls @ 8.25 mls/hr 11/18/24 04:53 11/18/24 09:30 Levophed In D5w 8mg/250ml IV 12/18/24 04:52 0.05 mcg/kg/min .Q24H PRN 8.25 mls/hr PER PROTOCOL Titration Protocol 0.05 MCG/KG/MIN Propofol 1,000 mg in 100 mls @ 2.64 mls/hr 11/18/24 04:53 11/18/24 09:33 Diprivan Ivpb IV 12/18/24 04:52 15 mcg/kg/min .Q24H PRN 7.92 mls/hr PER PROTOCOL Titration Protocol 5 MCG/KG/MIN Piperacillin Sod/Tazobactam 100 mls @ 200 mls/hr 11/18/24 12:00 Sod 4.5 gm/ Sodium Chloride IV 11/25/24 11:59 Q6HR MEG Sodium Bicarbonate 150 meq/ 1,000 mls @ 150 mls/hr 11/18/24 09:18 11/18/24 11:10 Sodium Chloride IV 11/18/24 15:57 150 mls/hr .Q6H40M ONE Administration Insulin Human Lispro 0 unit 11/18/24 06:00 11/18/24 06:42 Insulin Lispro (Admelog) 1 Unit/0.01 Ml Unit SC 12/18/24 05:59 3 unit Q6HR MEG Administration Protocol Ondansetron HCl 4 mg 11/18/24 04:34 Ondansetron Inj 2 Mg/Ml Inj 2 Ml IV 12/18/24 04:33 Q6H PRN NAUSEA OR VOMITING Protocol Pantoprazole Sodium 40 mg 11/18/24 09:00 11/18/24 09:26 Pantoprazole Inj 40 Mg Vial IVP 12/18/24 08:59 40 mg QDAY MEG Administration Plan Mr Brandon is a 64 year old male admitted for cadriac arrest - V.Fib s/p shock x1 and cardiogenic shock. He is intubated on MV, sedative drips and on levophed for pressure support. NEURO Acute metabolic Encephalopathy Sedated , on MV Dx: - Patient was found unresponsive at home, following [id number] cardiac arrest. - CT head : ruled out intracranial hemorrhage. Rx: - Continue Fentanyl and Propofol gtts while on MV - Will bring down RAAS goal from -3 to -1 and assess for response RESP Intubation and mechanical ventilation for airway protection Acute hypoxic and hypercapneaic respiratory failure Bibasilar PNA, possibly Aspiration Hemoptysis in ET tube Dx: - Likely secondary to cardiac arrest - CTA: Negative for pulmonary artery emboli. Extensive bibasilar pneumonia, consider aspiration pneumonia - Hemoptysis likely due to rigorous CPR for about ~ 20 mins. - Repeat CXR : clear lung calero Rx: - MV: AC mode, VT 400, RR 20, PEEP 10, FiO2 70 - On IV Zosyn for aspiration PNA, transitioned from 3.375 --> 4.5g q6H (11/18 - - Will hold off on any chemical AC CARDIO Cardiac arrest - VFib s/p shock x1 Cardiogenic shock Ischemic cardiomyopathy / Troponinemia - [id number] cardiac arrest likely secondary to NSTEMI, noted troponin elevation - Per ER, patient rhythm was ventricular fibrillation on arrival, received 1 round of epi and defibrillation, ROSC was achieved after about 15-20 mins of CPR - Trop I : 0.269 --> 3.849 --> 5.692 --> 7.872 - BNP : wnl Rx: ? Brokerage Manager Dr. Morales consulted for recommendations re: coronary angiogram vs. ICD placement. Will evaluate patient in the afternoon. ? Troponin every 6 hours ? Echocardiogram ordered ? Aspirin 81 mg daily ? Inotropic support with Levophed gtt GI Acute liver Injury Dx: - ALT= 35 -> 923 -> 795 - AST = 33 -> 813 -> 951 - ALP = mildly elevated - Likely due to hypovolemia and poor perfusion Rx: - Likely secondary to hypotension following cardiac arrest - Will hold off on atorvastatin at this point, due to elevated transaminases. RENAL Lactic acidosis YEN Dx: - YEN : Cr 0.9 -> 1.4 -> 1.5 and GFR >60 -> 55 -> 51 - Likely secondary to cardiogenic shock leading to prerenal acute kidney injury and metabolic acidosis. - LA = 3.2 --> 3.5 , after 500ml bolus x1 Rx: - Sodium bicarb 50 mEq x 1 given - Bicarb gtt in 1/2 NS @ 100cc/h x1 bag - Trend LA q 6H - Renally dose medications like anticoagulants and antibiotics - Avoid nephrotoxic agents ENDO IDDM Type II Dx: - Patient takes glipizide at home - A1c = (10/2024) 8% --> (11/17/2024) 7.2% Rx: - Started SSI with Accu-Checks - Hypoglycemia protocol in place HEME/ONC Normocytic anemia Dx: Hb 12.9 - 12.5 and MCV 90s Rx: - Consider IV iron replacement - Consider B12/FA supplementation Thrombocytopenia Dx: PLT 148 -> 116 -> 128 Likely in acute setting Rx: - Monitor with daily CBC - Likely in acute setting, may worsen hemoptysis - Patient is taking ASA, will monitor closely ID Possible Aspiration PNA Leukocytosis - resolved Dx: WBC: 12.1 -> 10 Rx: IV Zosyn 4.5 (11/18 - Health maintenance: Disposition: Admitted to ICU for VFib and cardiogenic shock, s/p intubation on pressor support DVT prophylaxis: -- No chemical AC. GI prophylaxis: Protonix 40mg qD Diet: NPO Lines: PIVs CODE STATUS: Full code Plan of care discussed with attending Dr Cedillo, - Efe Kc M.D. PGY2 Disclaimer: Minor errors in fire range technician may be present as this note was dictated using voice recognition software.
[2024-11-18] MEDS: PIPER/TAZO INJ 4.5 GM in SODIUM CHLORIDE 0.9% (POP) 100 ML IV ×2 (11:46→17:43)
[2024-11-18 14:19] LABS: Albumin, Serum 3.4 gm/dL (3.4-4.8); Anion Gap 11 (7-16); BUN/Creatinine Ratio 16 Ratio (12-20); Blood Urea Nitrogen 25 mg/dL (9-23); Calcium 7.5 mg/dL (8.3-10.6); Carbon Dioxide 21.8 mMol/L (20.0-31.0); Chloride 106 mMol/L (98-107); Creatinine (Component) 1.6 mg/dL (0.6-1.3); Estimated Creatinine Clearance 45.4 mL/min (>60); Glucose 365 mg/dL (74-106); Osmolality,Calculated 296 (275-295); Phosphorous 3.1 mg/dL (2.4-5.1); Potassium 5.3 mMol/L (3.4-5.1); Sodium 139 mMol/L (136-145); eGFR 47 See Note
[2024-11-18 14:36] LABS: Troponin I 7.872 ng/mL (0.0-0.045)
--- NOTE | 2024-11-18 15:06 | PC.NURSE ---
A goals of care conversation was held with ICU cryogenics repairer, ICU resident, social media sr strategy manager, and RN. The cryogenics repairer went over the patients overall prognosis with the patient's family. The family stated that they would like to talk over their options amongst themselves before they arrive at a consensus.
--- NOTE | 2024-11-18 15:08 | PC.NURSE ---
Donor network was contacted at approximately 1300 for patients referral as a GCS of 3 was observed in the patient. Donor network account retention representative Kartik was reached and stated that the patient was a candidate for organ donation and to reach out if any change in patients health status, or if a conclusion was reached by the family about goals of care. Patients OPA number is [phone].
[2024-11-18] MEDS: CALCIUM GLUC/NS 1000MG IVPB 1,000 MG/50 ML BAG 50 MG IV (15:42)
[2024-11-18] MEDS: SODIUM CHLORIDE 0.9% 500 ML 500 ML 999 ML IV (15:58)
[2024-11-18] MEDS: DOPamine/D5w 400 MG IVPB 400 MG/250 ML BAG 15.3 MG IV (16:34)
[2024-11-18 17:01] LABS: Lactate (Lactic Acid) 2.7 mMol/L (0.4-2.0)
[2024-11-18 18:14] LABS: Albumin, Serum 3.3 gm/dL (3.4-4.8); Anion Gap 12 (7-16); BUN/Creatinine Ratio 16 Ratio (12-20); Blood Urea Nitrogen 27 mg/dL (9-23); Calcium 7.7 mg/dL (8.3-10.6); Calcium (Corrected) 8.3 mg/dL (8.5-10.1); Carbon Dioxide 21.4 mMol/L (20.0-31.0); Chloride 105 mMol/L (98-107); Creatinine (Component) 1.7 mg/dL (0.6-1.3); Estimated Creatinine Clearance 42.7 mL/min (>60); Glucose 297 mg/dL (74-106); Magnesium 2.4 mg/dL (1.6-2.6); Osmolality,Calculated 291 (275-295); Phosphorous 3.8 mg/dL (2.4-5.1); Potassium 5.2 mMol/L (3.4-5.1); Sodium 138 mMol/L (136-145); eGFR 44 See Note
[2024-11-18] MEDS: PROPOFOL 1,000 MG IVPB 1,000 MG/100 ML VIAL 5.28 MG IV (19:26)
[2024-11-18 20:00] LABS: Reflex Lactate? Y
[2024-11-18 20:22] LABS: Lactic Acid, 3 HR 2.2 mMol/L (0.4-2.0)
[2024-11-18 21:20] LABS: Anion Gap 10 (7-16); BUN/Creatinine Ratio 18 Ratio (12-20); Blood Urea Nitrogen 28 mg/dL (9-23); Calcium 7.8 mg/dL (8.3-10.6); Carbon Dioxide 24.2 mMol/L (20.0-31.0); Chloride 107 mMol/L (98-107); Creatinine (Component) 1.6 mg/dL (0.6-1.3); Estimated Creatinine Clearance 45.4 mL/min (>60); Glucose 282 mg/dL (74-106); Osmolality,Calculated 296 (275-295); Potassium 4.6 mMol/L (3.4-5.1); Sodium 141 mMol/L (136-145); eGFR 47 See Note
--- NOTE | 2024-11-18 21:27 | PC.NURSE ---
Updated Glenn from donor network about patients current drips, latest VS and possible plan for patient.
[2024-11-18 21:32] LABS: Albumin, Serum 3.5 gm/dL (3.4-4.8); Calcium (Corrected) 8.2 mg/dL (8.5-10.1); Magnesium 2.2 mg/dL (1.6-2.6); Phosphorous 3.4 mg/dL (2.4-5.1)
--- NOTE | 2024-11-18 22:09 | ESCONSULT_ITS ---
RE: GABRIEL CARDOSO : 1960 DATE OF CONSULTATION: 11/18/2024 CONSULTING PHYSICIANS: Hospitalist and cloth winder. REASON FOR CONSULTATION: Evaluation of patient following cardiac arrest and resuscitation. HISTORY OF PRESENT ILLNESS: The patient is a 64-year-old male with a past medical history of hypertension, diabetes mellitus, prior history of sudden cardiac and arrest in 10/2023. He was in the hospital for about 4 days following that episode, was discharged and supposed to have cardiac workup, has been doing fairly well until recently, did not have any cardiac workup and supposed to have coronary angiogram, but did not have any angiogram. He was not followed by content specialist. He was only seen by family healthcare physician. He has been doing well until this morning. direct sales representative, patient's found the patient to be gasping, not breathing, called 911. The patient was found to have ventricular fibrillation. He was shocked by emergency service. In the emergency room, patient was given epinephrine x1 and started on amiodarone drip. ROSC achieved after one cycle of CPR. The patient was intubated and started on mechanical ventilation. The patient was also given IV fluid boluses. Initial labs did show some leukocytosis, acidosis and creatinine 1.4. Troponin level continues to be elevated. He has acute non-ST segment elevation myocardial infarction. EKG showed evidence of sinus rhythm, nonspecific ST-T changes. The patient remains hypotensive on dopamine 5 mcg and 0.25 mcg norepinephrine. At this time of assessment around 06:00 p.m., patient is opening his eyes, but not sure of the purposeful opening of eyes, but the family thinks that patient is communicating. He is already on sedation with fentanyl and propofol. The patient did not give any history of previous chest pain leading up to the symptoms. Last admission in 2023, similar episode, patient did have cardiac arrest, pulmonary resuscitation, did not have any angiogram prior to discharge. There was also aspiration pneumonia at that time. His echocardiogram examination in 10/2023 when he was admitted to the hospital with cardiac arrest showed ejection fraction in fact was normal 65%. ALLERGIES: NONE. MEDICATIONS: He has been on: 1. Aspirin 81 mg daily. 2. Plavix 75 mg daily. 3. Insulin for diabetes. 4. Lisinopril and hydrochlorothiazide 20/25 mg daily. 5. Metformin 1000 mg b.i.d. PAST MEDICAL HISTORY: Hypertension, diabetes, hypercholesterolemia, and cardiac arrest and resuscitation in 10/2023. No angiogram done. Not followed by content specialist. SOCIAL HISTORY: The patient is , lives with his . He is a nonsmoker and does not drink alcohol. He is apparently fairly active until this happened. REVIEW OF SYSTEMS: CARDIOVASCULAR: As described earlier. GASTROINTESTINAL: No history of nausea or vomiting. GENITOURINARY: No history of frequency or dysuria. NEUROLOGIC: No history of seizures. PHYSICAL EXAMINATION: GENERAL: Well-nourished, acutely ill, chronically ill male, who is arousable, appears to be opening his eyes, but not sure of his purposeful motion. VITAL SIGNS: Blood pressure 120/56, pulse rate is 60, respirations 20, temperature 98, and oxygen saturation is 100% at 70% FiO2. HEENT: Examination of head is atraumatic. Eyes normal. ENT normal. NECK: Supple. No JVD. CHEST: Symmetrical. LUNGS: Decreased breath sounds at the bases. HEART: S1 and S2 regular. No gallops. ABDOMEN: Thin and soft. EXTREMITIES: No edema. GENITOURINARY AND RECTAL: Not performed. NEUROLOGIC: The patient appears to open his eyes, but not purposeful at this point. Detailed exam again not performed. Electrocardiogram showed marked sinus bradycardia, first-degree AV block, no ST elevations. There is some slight suggestion of ST elevation in V3 and V4, but no significant evolution. Cardiac enzymes, initial enzyme was 0.26, but went up to 7.8 now this afternoon, continues to rise. IMAGING: Chest x-ray showed evidence of mild pulmonary congestion and mild cardiomegaly. IMPRESSION AND ASSESSMENT: 1. Bnh-rk-skczmfbu cardiac arrest, sudden cardiac , primary arrhythmia, ventricular fibrillation. 2. Acute kbc-LG-dxpxsll elevation myocardial infarction. 3. Hypertension. 4. Diabetes mellitus. 5. History of previous sudden cardiac on 10/09/2023 with successful resuscitation. RECOMMENDATIONS AND DISCUSSION: The patient is a 64-year-old male with past history of previous sudden cardiac , hypertension, diabetes, and hypercholesterolemia, who was admitted to the hospital with xgj-qn-bobgwghq cardiac arrest with successful resuscitation. ROSC achieved. Mental status is still uncertain. Still appears to have some hypoxic encephalopathy. We will continue to monitor mental status closely. Once he wakes up and his condition improves by Wednesday, we will probably perform coronary angiogram and cardiac catheterization. The patient should be continued on aspirin and recommend continuing amiodarone if he has any arrhythmias. We will also start the patient on heparin drip since the patient had enzyme elevation, possibly acute coronary artery syndrome with ischemia causing ventricular fibrillation. I would like to thank for referring this patient for cardiovascular evaluation. We will be glad to follow the patient with you and perform angiogram possibly whenever the patient is stable. Condition is critical. Prognosis is guarded. DT: 20:48:52 TT: 22:08:00 Ref: [id number] - TID: [id number]
[2024-11-19] VITALS (105 sets, daily range): BP systolic 70–188; BP diastolic 50–94; PULSE 52–101; RESP 4–30; TEMP 36.3–37.5; O2SAT 88–100; BMI 27.5
[2024-11-19] MEDS: INSULIN LISPRO (AdmeLOG) 1 UNIT/0.01 ML UNIT SC ×4 (00:29→17:41)
[2024-11-19] MEDS: fentaNYL 2,500 MCG/250 ML BAG 2,500 MCG/250 ML BAG 12.5 MCG IV (00:30)
[2024-11-19] MEDS: PIPER/TAZO INJ 4.5 GM in SODIUM CHLORIDE 0.9% (POP) 100 ML IV ×4 (00:30→17:44)
[2024-11-19 01:43] LABS: Albumin, Serum 3.3 gm/dL (3.4-4.8); Anion Gap 8 (7-16); BUN/Creatinine Ratio 17 Ratio (12-20); Blood Urea Nitrogen 27 mg/dL (9-23); Calcium 7.7 mg/dL (8.3-10.6); Calcium (Corrected) 8.3 mg/dL (8.5-10.1); Carbon Dioxide 26.8 mMol/L (20.0-31.0); Chloride 107 mMol/L (98-107); Creatinine (Component) 1.6 mg/dL (0.6-1.3); Estimated Creatinine Clearance 45.4 mL/min (>60); Glucose 245 mg/dL (74-106); Osmolality,Calculated 296 (275-295); Phosphorous 3.6 mg/dL (2.4-5.1); Potassium 4.6 mMol/L (3.4-5.1); Sodium 142 mMol/L (136-145); eGFR 47 See Note
[2024-11-19 05:07] LABS: Base Excess 1 (-3-3); HCO3 27 mEq/L (20-26); Inspired Oxygen, FIO2 70 %; O2 Saturation 99 % (91-98); PCO2 49 mmHg (32.0-48.0); PO2 170 mmHg (83-108); pH, Arterial 7.36 (7.35-7.45)
[2024-11-19 05:10] LABS: Allen Test Performed/OK; Puncture Site Right Radial
[2024-11-19 05:24] LABS: Basophils % (Auto) 0 % (0-2.5); Eosinophils % (Auto) 0 % (0-10); Hematocrit 36.3 % (41.0-53.0); Hemoglobin 12.5 g/dL (13.5-16.0); Immature Granulocytes % (Auto) 0 % (0-0); Immature Granulocytes Auto 0.06 Thou/mm3 (0.00-0.00); Lymphocytes % (Auto) 7 % (10-50); Mean Corpuscular HGB Conc 34.4 g/dl (31.0-37.0); Mean Corpuscular Hemoglobin 32.3 pg (25.0-35.0); Mean Corpuscular Volume 94 fL (80-100); Monocytes # (Auto) 0.4 Thou/mm3 (0.0-0.8); Monocytes % (Auto) 3 % (0-12); Neutrophils # (Auto) 12.7 Thou/mm3 (1.8-7.7); Neutrophils % (Auto) 90 % (37-80); Nucleated Red Blood Cell % 0 /100 WBC (0); Platelet Count 101 Thou/mm3 (140-440); RDW Standard Deviation 46.6 fL (35.1-43.9); Red Blood Count 3.87 Miln/mm3 (4.50-5.90); White Blood Count 14.2 Thou/mm3 (3.8-10.6)
[2024-11-19 05:28] LABS: Collection Type, Urine Clean Catch
[2024-11-19 06:03] LABS: Alanine Aminotransferase 548 U/L (10-49); Albumin, Serum 3.4 gm/dL (3.4-4.8); Albumin/Globulin Ratio 1.9 (1.2-2.2); Alkaline Phosphatase 70 U/L (46-116); Anion Gap 9 (7-16); Aspartate Amino Transferase 302 U/L (0-34); BUN/Creatinine Ratio 16 Ratio (12-20); Bilirubin,Total 1.3 mg/dL (0.3-1.2); Blood Urea Nitrogen 24 mg/dL (9-23); Calcium (Corrected) 8.5 mg/dL (8.5-10.1); Carbon Dioxide 25.4 mMol/L (20.0-31.0); Chloride 108 mMol/L (98-107); Creatinine (Component) 1.5 mg/dL (0.6-1.3); Estimated Creatinine Clearance 48.4 mL/min (>60); Globulin 1.8 gm/dL (2.3-3.5); Glucose 216 mg/dL (74-106); Magnesium 2.1 mg/dL (1.6-2.6); Osmolality,Calculated 294 (275-295); Potassium 4.6 mMol/L (3.4-5.1); Sodium 142 mMol/L (136-145); Total Protein 5.2 gm/dL (5.7-8.2); eGFR 51 See Note
[2024-11-19 06:21] LABS: Bacteria,Urine Rare; Bilirubin,Urine Negative (Negative); Blood,Urine 2+ (Negative); Clarity,Urine Clear (Clear/Hazy); Color,Urine Lt-Yellow (Lt Yel-Yel); Glucose, Urine 2+ (Negative); Ketones,Urine Negative (Negative); Leukocyte Esterase,Urine Negative (Negative); Nitrite,Urine Negative (Negative); Protein,Urine Trace (Neg - Trace); RBC,Urine 66 /hpf (0-3); Specific Gravity,Urine 1.036 (1.001-1.035); Squamous Epithelial Cell,Urine < 1 /hpf (0-5); Urobilinogen,Urine Negative mg/dL (0.0-1.0); WBC,Urine 7 /hpf (0-5)
--- NOTE | 2024-11-19 08:35 | XR_ITS ---
Examination: AP chest single view Technique one AP portable semiupright chest single view Date and time: November 19, 2024, 0914 hrs. Comparison November 18, 2024 Indications: History cardiac arrest, hypoxic respiratory failure postintubation Findings: Mild enlargement cardiac contour with prominent vascular congestion Pneumonia in the left perihilar and left basilar region, obscuring detail medial portion left hemidiaphragm Tracheal tube tip approximately 5 cm above alex. Orogastric tube tip distal stomach No pneumothorax Impression: Significant left perihilar left basilar pneumonia Mild heart failure
[2024-11-19] MEDS: PANTOPRAZOLE INJ 40 MG VIAL IVP (09:28)
[2024-11-19] MEDS: ASPIRIN 81 MG CHEW NG (09:28)
[2024-11-19 10:03] LABS: Partial Thromboplastin Time 27.3 Seconds (22.0-36.0)
[2024-11-19] MEDS: DEXMEDETOMIDINE 400 MCG IVPB 400 MCG/100 ML BAG IV (10:28)
--- NOTE | 2024-11-19 10:47 | ESPR_ITS ---
<Statement entered by Pb Cedillo MD - 11/19/24 13:03> echocardiogram result pending. Cumulative time spent in management of patient is 45 minutes excluding procedures. Discussed with family regarding prognosis Documentation for date of: 11/19/24 Subjective Subjective Interval history: Mr Nguyễn is a 64-year-old male with a past medical history of hypertension and diabetes mellitus, prior history of cardiac arrest in 2023, who was brought in by ambulance after jdr-ly-ikwpmqgm cardiac arrest. noticed the patient to be gasping for air, and called ambulance, CPR was initiated en route by EMS, patient was found to have V-fib, shock was given, in the emergency room patient was given epinephrine x 1, started on amiodarone, ROSC was achieved after 1 cycle of CPR, patient was intubated and started on mechanical ventilation. Given 2 L IV fluid boluses, initial labs showed leukocytosis, metabolic acidosis on ABG, YEN, creatinine 1.4, transferred, and ischemia, troponinemia, lipase 59. Patient later became hypotensive, after starting IV sedation, was started on Levophed, patient was admitted to ICU for further management. Per , patient had similar presentation last year, with sul-ui-dnxcpxfi cardiac arrest, with ROSC achieved following CPR in emergency room, patient was discharged on aspirin and Plavix. Per , patient is compliant with his medications, current medications include clopidogrel, lisinopril, metformin and glipizide. Denies any history of heart failure, myocardial infarction, recent fever or illness, diarrhea or seizures. 11/18/2024: Patient was seen and examined at bedside this AM. Patient sedated, on mechanical ventilation and pressure support. MV settings: AC RR 20, TV 400, FiO2 70 and PEEP 10. Patient had sanguinous discharge in the ET tube on suction around 8am, is not on any AC at this time. Coag panel fairly normal. CT chest showed atelectasis of lower lobes bilaterally, severe ARDS. Cardiology is consulted for VFib and cardiogenic shock, will evaluate patient in the afternoon. Bedside echo showed good LVEF, no pericardial fluid. Patient is minimally responsive to stimuli even after brining down RAAS to -1. Family meeting for [facility] held around 10am, omani translation used (ID: [id number]). Family counseled on poor prognosis, showed full comprehension. Will continue to monitor in ICU on levophed, fentanyl and propofol gtt, and will follow up cardio recs. 11/19/2024: Patient was seen and examined at bedside this AM. Overnight, urine output was 1900mL and mentation improved slightly, patient is spontaneously opening eyes, lifting head and flexing away from pain stimuli. HR and MAP wnl off of dopamine drip. Extremities warmer to touch, good EF on bedside echo. [facility] Vent settings changed from ACVC to PSV, NiF noted to be good with successful spontaneous breathing trial. CXR showed clear lung calero. Patient was successfully extubated at 10:26 am. He was started on precedex gtt post extubation for agitation, and given a 1mg ativan x1 dose. Cardiology recommendations appreciated, will start heparin drip after midnight, patient to undergo possible cardiac cath on 11/20/2024. Exam Vital Signs Temp Pulse Resp BP Pulse Ox O2 Del Method FiO2 98.1 F 68 20 100/57 L 98 Mechanical Ventilation 50 11/19/24 08:00 11/19/24 09:45 11/19/24 09:45 11/19/24 09:45 11/19/24 09:45 11/18/24 20:00 11/19/24 08:00 Narrative Exam Constitutional Agitated, alert but unable to assess orientation. HEENT Vision grossly intact. Patent nares. Trachea midline. Extubated successfully, sats 94-96% on RA Respiratory Chest normal on inspection and clear to auscultation bilaterally. Cardiovascular S1 and S2 audible, RRR. No murmurs or carotid bruit. No gross JVD. Abdominal Soft and BS + , mildly distended. Genitourinary No bladder tenderness, no flank pain. Normal to palpation. Musculoskeletal Extremities tone within normal limits. No LE edema, extremities warmer to touch. Neurological CN II - XII grossly intact. GCS 9 Extremity motor and sensation grossly intact. Skin UE swelling R>L, possible extravasation Routine HEENT Exam Head: Present normocephalic and atraumatic Eye: Present PERRL Routine Neck Exam Neck: Present supple Routine Respiratory Exam Respiratory: Present rhonchi, respiratory distress and diminished air movement Routine Cardiovascular Exam Cardiovascular: Present RRR, S1, S2 and bradycardia Routine Abdominal Exam Abdominal: Present soft Routine Skin Exam Skin: Present intact Routine Neurological Exam Comments: pupils equal. reactive. unresponsive to verbal stimuli. withdraws to painful stimuli Objective Labs 11/19/24 04:41 11/19/24 04:41 Labs: Laboratory Results - last 24 hr 11/18/24 11/18/24 11/18/24 10:42 13:37 16:45 WBC RBC Hgb Hct MCV MCH MCHC RDW Std Deviation Plt Count Neut % (Auto) Lymph % (Auto) Green % (Auto) Eos % (Auto) Baso % (Auto) Neut # (Auto) Lymph # (Auto) Green # (Auto) Eos # (Auto) Baso # (Auto) Immature Gran # (Auto) Absolute Nucleated RBC Immature Gran % Nucleated RBC % APTT Puncture Site ABG pH ABG pCO2 ABG pO2 ABG HCO3 ABG O2 Saturation ABG Base Excess FiO2 Sodium 139 138 Potassium 5.3 H 5.2 H Chloride 106 105 Carbon Dioxide 21.8 21.4 Anion Gap 11 12 BUN 25 H 27 H Creatinine 1.6 H 1.7 H Estim Creat Clear Calc 45.4 L 42.7 L eGFR 47 L 44 L BUN/Creatinine Ratio 16 16 Glucose 365 H 297 H D Calculated Osmolality 296 H 291 Lactic Acid 3.5 H 2.7 H Calcium 7.5 L 7.7 L Corrected Calcium 8.0 L 8.3 L Phosphorus 3.1 3.8 Magnesium 2.4 Total Bilirubin AST ALT Alkaline Phosphatase Troponin I 7.872 H* D Total Protein Albumin 3.4 3.3 L Globulin Albumin/Globulin Ratio Ur Collection Type Urine Color Urine Clarity Urine pH Ur Specific [place] Urine Protein Urine Glucose (UA) Urine Ketones Urine Blood Urine Nitrite Urine Bilirubin Urine Urobilinogen (Auto) Ur Leukocyte Esterase Urine RBC Urine WBC Ur Squamous Epith Cells Urine Bacteria 11/18/24 11/18/24 11/19/24 20:15 21:41 01:00 WBC RBC Hgb Hct MCV MCH MCHC RDW Std Deviation Plt Count Neut % (Auto) Lymph % (Auto) Green % (Auto) Eos % (Auto) Baso % (Auto) Neut # (Auto) Lymph # (Auto) Green # (Auto) Eos # (Auto) Baso # (Auto) Immature Gran # (Auto) Absolute Nucleated RBC Immature Gran % Nucleated RBC % APTT Puncture Site ABG pH ABG pCO2 ABG pO2 ABG HCO3 ABG O2 Saturation ABG Base Excess FiO2 Sodium 141 142 Potassium 4.6 D 4.6 Chloride 107 107 Carbon Dioxide 24.2 26.8 Anion Gap 10 8 BUN 28 H 27 H Creatinine 1.6 H 1.6 H Estim Creat Clear Calc 45.4 L 45.4 L eGFR 47 L 47 L BUN/Creatinine Ratio 18 17 Glucose 282 H 245 H Calculated Osmolality 296 H 296 H Lactic Acid 2.2 H Calcium 7.8 L 7.7 L Corrected Calcium 8.2 L 8.3 L Phosphorus 3.4 3.6 Magnesium 2.2 Total Bilirubin AST ALT Alkaline Phosphatase Troponin I 4.980 H* D Total Protein Albumin 3.5 3.3 L Globulin Albumin/Globulin Ratio Ur Collection Type Clean Catch Urine Color Lt-Yellow Urine Clarity Clear Urine pH 5.0 Ur Specific [place] 1.036 H Urine Protein Trace Urine Glucose (UA) 2+ A Urine Ketones Negative Urine Blood 2+ A Urine Nitrite Negative Urine Bilirubin Negative Urine Urobilinogen (Auto) Negative Ur Leukocyte Esterase Negative Urine RBC 66 H Urine WBC 7 H Ur Squamous Epith Cells < 1 Urine Bacteria Rare 11/19/24 11/19/24 11/19/24 04:41 04:45 09:35 WBC 14.2 H D RBC 3.87 L Hgb 12.5 L Hct 36.3 L MCV 94 MCH 32.3 MCHC 34.4 RDW Std Deviation 46.6 H Plt Count 101 L D Neut % (Auto) 90 H Lymph % (Auto) 7 L Green % (Auto) 3 Eos % (Auto) 0 Baso % (Auto) 0 Neut # (Auto) 12.7 H Lymph # (Auto) 1.0 Green # (Auto) 0.4 Eos # (Auto) 0.0 Baso # (Auto) 0.0 Immature Gran # (Auto) 0.06 H Absolute Nucleated RBC 0.00 Immature Gran % 0 Nucleated RBC % 0 APTT 27.3 Puncture Site Right Radial ABG pH 7.36 ABG pCO2 49 H ABG pO2 170 H D ABG HCO3 27 H ABG O2 Saturation 99 H ABG Base Excess 1 FiO2 70 Sodium 142 Potassium 4.6 Chloride 108 H Carbon Dioxide 25.4 Anion Gap 9 BUN 24 H Creatinine 1.5 H Estim Creat Clear Calc 48.4 L eGFR 51 L BUN/Creatinine Ratio 16 Glucose 216 H Calculated Osmolality 294 Lactic Acid Calcium 8.0 L Corrected Calcium 8.5 Phosphorus Magnesium 2.1 Total Bilirubin 1.3 H D AST 302 H ALT 548 H* Alkaline Phosphatase 70 D Troponin I Total Protein 5.2 L Albumin 3.4 Globulin 1.8 L Albumin/Globulin Ratio 1.9 Ur Collection Type Urine Color Urine Clarity Urine pH Ur Specific [place] Urine Protein Urine Glucose (UA) Urine Ketones Urine Blood Urine Nitrite Urine Bilirubin Urine Urobilinogen (Auto) Ur Leukocyte Esterase Urine RBC Urine WBC Ur Squamous Epith Cells Urine Bacteria ABG Interpretation ABG results: 11/18/24 11/18/24 11/19/24 02:47 05:11 04:45 ABG pH 7.21 L 7.30 L 7.36 ABG pCO2 54 H 48 49 H ABG pO2 108 114 H 170 H D ABG HCO3 21 24 27 H ABG O2 Saturation 97 98 99 H ABG Base Excess -7 L -3 1 Quality Measures Quality Measures VTE prophylaxis and none Advance care planning discussed with:: spouse Assessment & Plan Assessment Current Active Medications: Generic Name Dose Route Start Last Admin Trade Name Freq PRN Reason Stop Dose Admin Acetaminophen 650 mg 11/18/24 04:34 Acetaminophen 325 Mg Tablet PO 12/18/24 04:33 Q6H PRN PAIN OR FEVER > 101 Aspirin 81 mg 11/19/24 09:00 11/19/24 09:28 Aspirin 81 Mg Chew NG 12/18/24 08:59 81 mg QDAY MEG Administration Dextrose 50 ml 11/18/24 05:11 Dextrose 50%-Water Inj 50 Ml Syringe IV 12/18/24 05:10 Q15MIN PRN BG <50 OR BG <70 & pt unresponsive Glucagon 1 mg 11/18/24 05:11 Glucagon Inj 1 Mg Vial IM Q15MIN PRN BG <70, and no IV access Fentanyl Citrate 2,500 mcg in 250 mls @ 2.5 mls/hr 11/18/24 04:11 11/19/24 09:00 Sublimaze Inj 2,500 Mcg/250 Ml Bag IV 11/23/24 04:10 125 mcg/hr .Q24H PRN 12.5 mls/hr PER PROTOCOL Titration Protocol 25 MCG/HR Norepinephrine/Dextrose 8 mg in 250 mls @ 8.25 mls/hr 11/18/24 04:53 11/19/24 07:59 Levophed In D5w 8mg/250ml IV 12/18/24 04:52 0 mcg/kg/min .Q24H PRN 0 mls/hr PER PROTOCOL Titration Protocol 0.05 MCG/KG/MIN Propofol 1,000 mg in 100 mls @ 2.64 mls/hr 11/18/24 04:53 11/19/24 09:38 Diprivan Ivpb IV 12/18/24 04:52 10 mcg/kg/min .Q24H PRN 5.28 mls/hr PER PROTOCOL Titration Protocol 5 MCG/KG/MIN Piperacillin Sod/Tazobactam 100 mls @ 200 mls/hr 11/18/24 12:00 11/19/24 05:45 Sod 4.5 gm/ Sodium Chloride IV 11/25/24 11:59 200 mls/hr Q6HR MEG Administration Dopamine HCl/Dextrose 400 mg in 250 mls @ 15.3 mls/hr 11/18/24 16:15 11/19/24 08:50 Intropin In D5w Ivpb IV 12/18/24 16:14 0 mcg/kg/min .[id number] MEG 0 mls/hr Titration Protocol 5 MCG/KG/MIN Dexmedetomidine/Sodium Chloride 400 mcg in 100 mls @ 4.23 mls/hr 11/19/24 10:34 Precedex Ivpb IV 12/19/24 10:33 .[id number] PRN Per PROTOCOL Protocol 0.2 MCG/KG/HR Insulin Human Lispro 0 unit 11/18/24 06:00 11/19/24 06:28 Insulin Lispro (Admelog) 1 Unit/0.01 Ml Unit SC 12/18/24 05:59 2 unit Q6HR MEG Administration Protocol Lorazepam 1 mg 11/19/24 10:45 Lorazepam 2 Mg/Ml Vial IVP 11/19/24 10:46 X1 ONE Ondansetron HCl 4 mg 11/18/24 04:34 Ondansetron Inj 2 Mg/Ml Inj 2 Ml IV 12/18/24 04:33 Q6H PRN NAUSEA OR VOMITING Protocol Pantoprazole Sodium 40 mg 11/18/24 09:00 11/19/24 09:28 Pantoprazole Inj 40 Mg Vial IVP 12/18/24 08:59 40 mg QDAY MEG Administration Plan Mr Brandon is a 64 year old male admitted for cadriac arrest - V.Fib s/p shock x1 and cardiogenic shock. He is intubated on MV, sedative drips and on levophed for pressure support. NEURO Acute metabolic Encephalopathy Dx: - Patient was found unresponsive at home, following mbt-ec-cjixbvql cardiac arrest. - CT head : ruled out intracranial hemorrhage. - 11/19: mentation improved slightly, patient is spontaneously opening eyes, lifting head and flexing away from pain stimuli. Rx: - Stopped Fentanyl and Propofol gtts as patient in extubated - Precedex drip 0.2mcg/h PRN for agitation - GCS improved to 9 but agitated so Ativan 1mg x1 given - May give Haldol is continues to be agitated on precedex RESP Acute hypoxic resp failure s/p extubation Hemoptysis in ET tube Dx: - Resp failure secondary to cardiac arrest - CTA: Negative for pulmonary artery emboli. Extensive bibasilar pneumonia, consider aspiration pneumonia - Hemoptysis likely due to rigorous CPR for about >30 mins as per records - 11/18 CXR : clear lung calero - 11/19 : [facility] Vent settings changed from ACVC to PSV, NiF noted to be good with successful spontaneous breathing trial. - CXR showed clear lung calero. Patient was successfully extubated at 10:26 am. - Overnight, urine output was 1900mL Rx: - Will hold off on heparin drip until midnight as sanguinous discharge noted in ET tube - RR on the lower side 8-12 post extubation and Ativan 1mg, will keep BiPAP at bedside set to RR 12-14 for optimization. CARDIO Cardiac arrest VFib s/p shock x1 Cardiogenic shock Ischemic cardiomyopathy NSTEMI - Lwu-qs-idzxstkv cardiac arrest likely secondary to NSTEMI, noted troponin elevation - Per ER, patient rhythm was ventricular fibrillation on arrival, received 1 round of epi and defibrillation, ROSC was achieved after about 15-20 mins of CPR - Trop I : 0.269 --> 7.87 --> 4.89 - BNP : wnl Rx: ? Debt Counselor Dr. Morales consulted, recommendations appreciated, will start heparin drip after midnight, patient to undergo possible cardiac cath on 11/20/2024. ? Echocardiogram taken, pending read ? Will hold Aspirin 81 mg daily until OGT in place ? Inotropic support with Dopamine gtt GI Acute liver Injury - resolving Dx: - ALT= 35 -> 923 -> 500 - AST = 33 -> 951 -> 300 - ALP = mildly elevated - T.Bili 0.8 --> 1.3 - Likely secondary to hypotension following cardiac arrest Rx: - Expected increase in T.Bili at 2-3 days post shock liver, will continue to monitor - Will hold off on atorvastatin for now, due to elevated transaminases. - Will get NG/OG tube and start feeding and PO medications RENAL YEN Dx: - YEN : Cr 0.9 -> 1.7 -> 1.5 and GFR >60 -> 51 - Likely secondary to cardiogenic shock leading to prerenal acute kidney injury and metabolic acidosis. - LA = 3.2 --> 3.5 --> 2.2 , 500ml bolus x2 - 11/18: Sodium bicarb 50mEq x 1 + Bicarb drip in 06/08 NS @ 100cc/h x1 bag Rx: - Renally dose medications like anticoagulants and antibiotics - Avoid nephrotoxic agents ENDO IDDM Type II Dx: - Patient takes glipizide at home - A1c = (10/2024) 8% --> (11/17/2024) 7.2% Rx: - Started SSI with Accu-Checks - Hypoglycemia protocol in place HEME/ONC Normocytic anemia Dx: Hb 12.9 - 12.5 and MCV 90s Rx: - Consider IV iron replacement - Consider B12/FA supplementation Thrombocytopenia Dx: PLT 148 -> 116 -> 101 Rx: - Monitor with daily CBC. Likely in acute setting. - ASA on hold until OGT placed Leukocytosis Dx: WBC: 12.1 -> 10 ->14 Rx: On IV Zosyn for Aspiration PNA ID Aspiration PNA Rx: - On IV Zosyn for aspiration PNA, transitioned from 3.375 --> 4.5g q6H (11/18 - Health maintenance: Disposition: Admitted to ICU for VFib and cardiogenic shock, s/p intubation on pressor support DVT prophylaxis: -- No chemical AC. GI prophylaxis: Protonix 40mg qD Diet: NPO Lines: PIVs CODE STATUS: Full code Plan of care discussed with attending Dr Cedillo, Mel Kc M.D. PGY2 Disclaimer: Minor errors in cook [employer] food may be present as this note was dictated using voice recognition software. Attending Provider Attestation/Addendum agree with above
[2024-11-19] MEDS: LORazepam 2 MG/ML VIAL 1 MG IVP (10:53)
[2024-11-19] MEDS: DOPamine/D5w 400 MG IVPB 400 MG/250 ML BAG 15.3 MG IV (11:40)
[2024-11-19] MEDS: HEPARIN SOD INJ 5000 UNIT/ML VIAL 4000 UNIT IV (16:20)
--- NOTE | 2024-11-19 17:35 | XR_ITS ---
Examination: AP chest single view Technique one AP portable semiupright chest single view Date and time: November 19, 2024 1741 hours Comparison November 19, 2024 0914 hours INDICATIONS: Reposition orogastric tube FINDINGS: Orogastric tube coiled in the fundus of the stomach satisfactory position Prominent vascular congestion Possible left perihilar pneumonia clinical correlation is advised Mild enlargement cardiac contour The patient has been extubated IMPRESSION: Orogastric tube coiled in the fundus of stomach satisfactory position Prominent vascular congestion Suspicious for left perihilar pneumonia
[2024-11-19] MEDS: Heparin/D5w 25K 250 ML Ivpb 25,000 UNIT/250 ML BAG 10 UNIT IV (19:37)
[2024-11-19] MEDS: DEXMEDETOMIDINE 400 MCG IVPB 400 MCG/100 ML BAG 12.69 MCG IV (21:30)
[2024-11-20] VITALS (49 sets, daily range): BP systolic 121–161; BP diastolic 57–81; PULSE 42–63; RESP 9–26; TEMP 36.4–38; O2SAT 88–98; BMI 27.5; BMI 27.6
[2024-11-20] MEDS: PIPER/TAZO INJ 4.5 GM in SODIUM CHLORIDE 0.9% (POP) 100 ML IV ×2 (00:04→05:46)
[2024-11-20 01:57] LABS: Partial Thromboplastin Time 46.9 Seconds (22.0-36.0)
[2024-11-20] MEDS: HEPARIN SOD INJ 5000 UNIT/ML VIAL 2000 UNIT IVP (03:33)
[2024-11-20 05:52] LABS: Basophils % (Auto) 0 % (0-2.5); Eosinophils % (Auto) 0 % (0-10); Hematocrit 31.1 % (41.0-53.0); Hemoglobin 10.5 g/dL (13.5-16.0); Immature Granulocytes % (Auto) 0 % (0-0); Immature Granulocytes Auto 0.02 Thou/mm3 (0.00-0.00); Lymphocytes % (Auto) 12 % (10-50); Mean Corpuscular HGB Conc 33.8 g/dl (31.0-37.0); Mean Corpuscular Volume 95 fL (80-100); Monocytes # (Auto) 0.4 Thou/mm3 (0.0-0.8); Monocytes % (Auto) 5 % (0-12); Neutrophils # (Auto) 7.2 Thou/mm3 (1.8-7.7); Neutrophils % (Auto) 83 % (37-80); Nucleated Red Blood Cell % 0 /100 WBC (0); Platelet Count 87 Thou/mm3 (140-440); RDW Standard Deviation 46.3 fL (35.1-43.9); Red Blood Count 3.28 Miln/mm3 (4.50-5.90); White Blood Count 8.7 Thou/mm3 (3.8-10.6)
[2024-11-20 06:18] LABS: Alanine Aminotransferase 308 U/L (10-49); Albumin, Serum 3.2 gm/dL (3.4-4.8); Albumin/Globulin Ratio 1.9 (1.2-2.2); Alkaline Phosphatase 62 U/L (46-116); Anion Gap 11 (7-16); Aspartate Amino Transferase 103 U/L (0-34); BUN/Creatinine Ratio 22 Ratio (12-20); Bilirubin,Total 1.5 mg/dL (0.3-1.2); Blood Urea Nitrogen 28 mg/dL (9-23); Calcium 8.3 mg/dL (8.3-10.6); Calcium (Corrected) 8.9 mg/dL (8.5-10.1); Carbon Dioxide 26.4 mMol/L (20.0-31.0); Chloride 108 mMol/L (98-107); Creatinine (Component) 1.3 mg/dL (0.6-1.3); Estimated Creatinine Clearance 55.9 mL/min (>60); Globulin 1.7 gm/dL (2.3-3.5); Glucose 204 mg/dL (74-106); Osmolality,Calculated 300 (275-295); Potassium 4.1 mMol/L (3.4-5.1); Sodium 145 mMol/L (136-145); Total Protein 4.9 gm/dL (5.7-8.2); eGFR > 60 See Note
[2024-11-20 06:47] LABS: INR 1.2 (0.9-1.3); Prothrombin Time 12.6 Seconds (9.0-12.2)
--- NOTE | 2024-11-20 07:22 | ESPR_ITS ---
<Statement entered by Lennox Manning MD - 11/20/24 14:46> TOTAL TIME: 45MINUTES ON DIRECT MEDICAL CARE, MANAGEMENT - COORDINATION AND COUNSELING > 50% OF TOTAL TIME I saw and evaluated the patient. I reviewed the resident?s note and agree with findings and plan as documented in the resident?s note. He is feeling better - today - has MSK chest pain post PCR reviewed his CT imaging - dense bl consolidations post c/w aspiration narrowed abx from zosyn to unasyn remains on 2l nc - no resp distress ADDENDUM: Dr. Morales informed me pt has LAD occlusion and 80% lcx - referrred for CABG and accepted by Dr Zhao in [place]. Documentation for date of: 11/20/24 Subjective Subjective Interval history: Mr Nguyễn is a 64-year-old male with a past medical history of hypertension and diabetes mellitus, prior history of cardiac arrest in 2023, who was brought in by ambulance after [id number] cardiac arrest. noticed the patient to be gasping for air, and called ambulance, CPR was initiated en route by EMS, patient was found to have V-fib, shock was given, in the emergency room patient was given epinephrine x 1, started on amiodarone, ROSC was achieved after 1 cycle of CPR, patient was intubated and started on mechanical ventilation. Given 2 L IV fluid boluses, initial labs showed leukocytosis, metabolic acidosis on ABG, YEN, creatinine 1.4, transferred, and ischemia, troponinemia, lipase 59. Patient later became hypotensive, after starting IV sedation, was started on Levophed, patient was admitted to ICU for further management. Per , patient had similar presentation last year, with sce-[id number]-khhhxsmv cardiac arrest, with ROSC achieved following CPR in emergency room, patient was discharged on aspirin and Plavix. Per , patient is compliant with his medications, current medications include clopidogrel, lisinopril, metformin and glipizide. Denies any history of heart failure, myocardial infarction, recent fever or illness, diarrhea or seizures. 11/18/2024: Patient was seen and examined at bedside this AM. Patient sedated, on mechanical ventilation and pressure support. MV settings: AC RR 20, TV 400, FiO2 70 and PEEP 10. Patient had sanguinous discharge in the ET tube on suction around 8am, is not on any AC at this time. Coag panel fairly normal. CT chest showed atelectasis of lower lobes bilaterally, severe ARDS. Cardiology is consulted for VFib and cardiogenic shock, will evaluate patient in the afternoon. Bedside echo showed good LVEF, no pericardial fluid. Patient is minimally responsive to stimuli even after brining down RAAS to -1. Family meeting for [facility] held around 10am, faroese translation used (ID: [id number]). Family counseled on poor prognosis, showed full comprehension. Will continue to monitor in ICU on levophed, fentanyl and propofol gtt, and will follow up cardio recs. 11/19/2024: Patient was seen and examined at bedside this AM. Overnight, urine output was 1900mL and mentation improved slightly, patient is spontaneously opening eyes, lifting head and flexing away from pain stimuli. HR and MAP wnl off of dopamine drip. Extremities warmer to touch, good EF on bedside echo. Mech Vent settings changed from ACVC to PSV, NiF noted to be good with successful spontaneous breathing trial. CXR showed clear lung calero. Patient was successfully extubated at 10:26 am. He was started on precedex gtt post extubation for agitation, and given a 1mg ativan x1 dose. Cardiology recommendations appreciated, will start heparin drip after midnight, patient to undergo possible cardiac cath on 11/20/2024. 11/20/2024: Patient Ugandan-speaking on interaction facilitated by registered healthcare assistant controller. Patient seen and examined in ICU this a.m. overnight Precedex infusion was stopped, heparin infusion currently ongoing. Patient complains of 10/10 generalized chest pain, worse on inspiration. Hb decreased to 10.5 from 12.5, WBC decreased to 8.7 from 14.2, PLT decreased to 87 from 101, creatinine improved to 1.3 from 1.5, T. bili increased to 1.5 from 1.3, AST decreased to 103 from 302, ALT decreased to 308 from 548. Fasting glucose 204. Transthoracic echocardiogram showed septal hypokinesis, estimated EF 40%. Patient scheduled for left heart catheterization today. Will de-escalate antibiotics to Unasyn from Zosyn, start patient on CIWA protocol with IV thiamine, give glargine 5U SC at bedtime, lidocaine patch x 1 for CPR related chest pain, 1L LR IVF at 80 cc/hour. Exam Vital Signs Temp Pulse Resp BP Pulse Ox O2 Del Method O2 Flow Rate 98.8 F 51 L 20 153/71 H 95 Nasal Cannula 4 11/20/24 04:00 11/20/24 06:30 11/20/24 06:30 11/20/24 06:30 11/20/24 06:30 11/20/24 04:00 11/20/24 04:00 FiO2 40 11/19/24 12:27 Narrative Exam Constitutional Alert and oriented x 2 [person and place]. Elderly male on 2L via NC HEENT Vision grossly intact. Patent nares. Trachea midline. PERRL Respiratory Chest normal on inspection and clear to auscultation on anterior chest wall, bilateral crackles at bases posteriorly. Cardiovascular S1 and S2 audible, RRR. No murmurs or carotid bruit. No gross JVD. Abdominal Soft, obese and nontender to palpation. BS positive sign Genitourinary No bladder tenderness, no flank pain. Normal to palpation. Musculoskeletal Extremities tone within normal limits. No LE edema. DP pulses palpated bilaterally Neurological CN II - XII grossly intact. GCS E4 V4 M6. Extremity motor and sensation grossly intact. Skin Bilateral forearms covered in bandages, clean and dry. Objective Labs 11/20/24 04:35 11/20/24 04:35 Labs: Laboratory Results - last 24 hr 11/19/24 11/20/24 11/20/24 09:35 01:31 04:35 WBC 8.7 D RBC 3.28 L Hgb 10.5 L D Hct 31.1 L MCV 95 MCH 32.0 MCHC 33.8 RDW Std Deviation 46.3 H Plt Count 87 L Neut % (Auto) 83 H Lymph % (Auto) 12 [place] % (Auto) 5 Eos % (Auto) 0 Baso % (Auto) 0 Neut # (Auto) 7.2 Lymph # (Auto) 1.0 [place] # (Auto) 0.4 Eos # (Auto) 0.0 Baso # (Auto) 0.0 Immature Gran # (Auto) 0.02 H Absolute Nucleated RBC 0.00 Immature Gran % 0 Nucleated RBC % 0 PT 12.6 H INR 1.2 APTT 27.3 46.9 H D Sodium 145 Potassium 4.1 D Chloride 108 H Carbon Dioxide 26.4 Anion Gap 11 BUN 28 H Creatinine 1.3 Estim Creat Clear Calc 55.9 L eGFR > 60 BUN/Creatinine Ratio 22 H Glucose 204 H Calculated Osmolality 300 H Calcium 8.3 Corrected Calcium 8.9 Magnesium 2.0 Total Bilirubin 1.5 H AST 103 H ALT 308 H Alkaline Phosphatase 62 Total Protein 4.9 L Albumin 3.2 L Globulin 1.7 L Albumin/Globulin Ratio 1.9 ABG Interpretation ABG results: 11/18/24 11/18/24 11/19/24 02:47 05:11 04:45 ABG pH 7.21 L 7.30 L 7.36 ABG pCO2 54 H 48 49 H ABG pO2 108 114 H 170 H D ABG HCO3 21 24 27 H ABG O2 Saturation 97 98 99 H ABG Base Excess -7 L -3 1 Quality Measures Quality Measures VTE prophylaxis and none Advance care planning discussed with:: patient and spouse Assessment & Plan Assessment Current Active Medications: Generic Name Dose Route Start Last Admin Trade Name Freq PRN Reason Stop Dose Admin Acetaminophen 1,000 mg 11/19/24 16:32 Acetaminophen 500 Mg Tablet PO 12/18/24 04:33 Q6H PRN Pain Or Fever > 99.9 Aspirin 81 mg 11/20/24 09:00 Aspirin 81 Mg Chew NG 12/20/24 08:59 QDAY MEG Clopidogrel Bisulfate 75 mg 11/20/24 09:00 Clopidogrel Bisulfate 75 Mg Tablet PO 12/20/24 08:59 QDAY MEG Dextrose 50 ml 11/18/24 05:11 Dextrose 50%-Water Inj 50 Ml Syringe IV 12/18/24 05:10 Q15MIN PRN BG <50 OR BG <70 & pt unresponsive Glucagon 1 mg 11/18/24 05:11 Glucagon Inj 1 Mg Vial IM Q15MIN PRN BG <70, and no IV access Norepinephrine/Dextrose 8 mg in 250 mls @ 8.25 mls/hr 11/18/24 04:53 11/19/24 07:59 Levophed In D5w 8mg/250ml IV 12/18/24 04:52 0 mcg/kg/min .Q24H PRN 0 mls/hr PER PROTOCOL Titration Protocol 0.05 MCG/KG/MIN Dexmedetomidine/Sodium Chloride 400 mcg in 100 mls @ 4.23 mls/hr 11/19/24 10:34 11/20/24 06:00 Precedex Ivpb IV 12/19/24 10:33 0 mcg/kg/hr .[id number] PRN 0 mls/hr Per PROTOCOL Titration Protocol 0.2 MCG/KG/HR Heparin Sodium/Dextrose 25,000 unit in 250 mls @ 10 mls/hr 11/19/24 19:30 11/19/24 19:37 Heparin In D5w Ivpb IV 12/03/24 19:29 11.82 units/kg/hr .Q24H MEG 10 mls/hr Administration Protocol 11.82 UNITS/KG/HR Dopamine HCl/Dextrose 400 mg in 250 mls @ 15.3 mls/hr 11/19/24 16:33 Intropin In D5w Ivpb IV 12/18/24 16:14 .[id number] PRN MAP <65 or HR <40 Protocol 5 MCG/KG/MIN Piperacillin Sod/Tazobactam 100 mls @ 25 mls/hr 11/20/24 14:00 Sod 4.5 gm/ Sodium Chloride IV 11/25/24 13:59 Q8HR MEG Protocol Insulin Human Lispro 0 unit 11/18/24 06:00 11/20/24 05:49 Insulin Lispro (Admelog) 1 Unit/0.01 Ml Unit SC 12/18/24 05:59 Not Given Q6HR MEG Protocol Ondansetron HCl 4 mg 11/18/24 04:34 Ondansetron Inj 2 Mg/Ml Inj 2 Ml IV 12/18/24 04:33 Q6H PRN NAUSEA OR VOMITING Protocol Pantoprazole Sodium 40 mg 11/18/24 09:00 11/19/24 09:28 Pantoprazole Inj 40 Mg Vial IVP 12/18/24 08:59 40 mg QDAY MEG Administration Plan Mr Brandon is a 64 year old male admitted for cadriac arrest - V.Fib s/p shock x1 and cardiogenic shock. He is intubated on MV, sedative drips and on levophed for pressure support. NEURO Acute metabolic Encephalopathy - resolving DDx: Chemical sedation, hypoxic brain injury Dx: - Patient was found unresponsive at home, following [id number] cardiac arrest. - CT head : ruled out intracranial hemorrhage. - 11/20: Patient currently A&O x 2. GCS E4 V4 M6. Rx: ? Continue Neuro Checks RRx : Due to patient's history of 30 minutes CPR, possible underlying hypoxic brain injury. However patient's much more alert and oriented off of sedation and following commands. Recommend outpatient neurology workup. RESP Aspiration pneumonia Dx: - CTA: Negative for pulmonary artery emboli. Extensive bibasilar pneumonia, consider aspiration pneumonia - Hemoptysis likely due to rigorous CPR for about >30 mins as per records - 11/18 CXR : clear lung calero ? 2 days Zosyn 4.5 g IV Q6 hourly [11/18 - 11/20] Rx: - De-escalated Zosyn to Unasyn 3 g IV Q6 hourly on [11/20? CARDIO Cardiac arrest s/p ROSC VFib s/p shock x1 Ischemic cardiomyopathy NSTEMI?resolving Dx: - Cju-ho-llbhmgxp cardiac arrest likely secondary to NSTEMI, noted troponin elevation - Per ER, patient rhythm was ventricular fibrillation on arrival, received 1 round of epi and defibrillation, ROSC was achieved after about 15-20 mins of CPR - Trop I : 0.269 --> 7.87 --> 4.89 - BNP : wnl ?TTE showed septal wall and left ventricle hypokinesis. Estimated EF 40% Rx: ? ASA 81 Mg p.o. daily, Plavix 75 Mg p.o. daily, heparin infusion ? For left heart cath today Chest pain DDx: likely CPR related Dx: EKG showed sinus bradycardia. No acute ST changes Rx: Lidocaine patch x 1 RRx: monitor for response. may possibly add additional agents GI Ischemic hepatitis- resolving DDx: ischemia from cardiac arrest Dx: - ALT= 35 -> 923 -> 500 ->308 - AST = 33 -> 951 -> 300 -> 103 - T.Bili 0.8 --> 1.3 -> 1.5 Rx: - Expected increase in T.Bili at 2-3 days post shock liver, will continue to monitor - Will hold off on atorvastatin for now, due to elevated transaminases. Hypoalbuminemia DDx: Secondary to chronic imflammation, poor nutrition RENAL YEN - resolved Dx: - YEN : Cr 0.9 -> 1.7 -> 1.5 --> 1.3 - Likely secondary to cardiogenic shock leading to prerenal acute kidney injury and metabolic acidosis. Rx: - LR IVF at 80 cc/hour to prevent contrast-induced nephropathy for next 6-12 hours ENDO IDDM Type II Dx: - Patient takes glipizide at home ?Was prescribed insulin but has not been compliant - A1c = (10/2024) 8% --> (11/17/2024) 7.2% Rx: - glargine 5U SC at bedtime ? SSI HEME/ONC Normocytic anemia DDx: Anemia of chronic disease, vitamin deficiency, myelodysplastic syndrome Dx: Baseline Hb 11?12. Currently Hb 10.5. FE 41, TIBC 260. Rx: Further workup needed. Thiamine 200mg IV daily for 3 days due to possibility of B1 deficiency RRx: Will recommend outpatient b12, folate, ldh, haptoglobin levels. Also hematology consultation as outpatient Thrombocytopenia DDx: Secondary to chronic disease, ITP Dx: PLT 148 -> 116 -> 101 -> 81 Rx: Monitor on CBC RRx: Recommend outpatient hematology consultation ID Aspiration Pneumonia See RESP Health maintenance: Disposition: Pending Cardiac Cath. DVT prophylaxis: Heparin INfusion GI prophylaxis: Protonix 40mg qD Diet: NPO Lines: PIVs CODE STATUS: Full code Plan of care discussed with Attending Dr.Malli Ismael Ramos MD PGY 1 Disclaimer: This note was dictated by speech recognition. Minor errors in casino banker may be present due to voice recognition software.
--- NOTE | 2024-11-20 07:32 | EKG_ITS ---
[facility] Test Date: 2024-11-20 Pat Name: GABRIEL CARDOSO [facility] En[facility] Controller: LUCIANO : 1960 Requested By: Ismael Ramos Order Number: [id number] Reading MD: Ismael Ramos Measurements Intervals [place] Rate: 52 P: 39 AL: 161 QRS: 42 QRSD: 88 T: 76 QT: 428 QTc: 399 Interpretive Statements SINUS BRADYCARDIA WITH SINUS ARRHYTHMIA NONSPECIFIC T-WAVE ABNORMALITY Compared to ECG 11/18/2024 09:25:05 T-wave abnormality now present Sinus rhythm no longer present Intraventricular conduction delay no longer present /store/S0/[id number]/ecg/[id number].pdf
--- NOTE | 2024-11-20 08:09 | ESPR_ITS ---
RE: GABRIEL CARDOSO : 1960 DATE OF SERVICE: 11/19/2024 SUBJECTIVE: The patient is a 64-year-old male who had sudden cardiac on 10/08/2024. For some unknown reasons, the patient did not have cardiac catheterization or coronary angiogram. The patient was discharged within 3 days on 10/11/2024 on medical management, supposedly scheduled to have outpatient cardiac workup, never had any cardiac workup, came back to the hospital. In fact, he was doing fairly well and back to work and on medical management, aspirin, Plavix, and insulin for diabetes. The patient had sudden cardiac at home, cardiac arrest, ventricular fibrillation with a primary arrhythmia, shocked, successful resuscitation for about 20-30 minutes, came to the emergency room, and one more round of epinephrine given. The patient had hypoxic encephalopathy and was unconscious yesterday, but this morning, the patient is awake and extubated, had some cough. There was some blood-tinged sputum yesterday, but today no blood-tinged sputum. He is awake and able to communicate. He does not complain of any chest pain either before or now. Shortness of breath is feeling tired. Complaints of no orthopnea or paroxysmal nocturnal dyspnea. He did have a cardiac echo that showed mild septal apical hypokinesis, ejection fraction around 40-45%. Troponin level was elevated but peaked at around up to 7.8, has now come down to 4.9 subsequently. EKG did show evidence of nonspecific changes. No evidence of myocardial infarction or ST elevation myocardial infarction. Chest x-ray showed possible aspiration pneumonia on the left side. OBJECTIVE: General: He is awake and able to communicate. Vital Signs: Blood pressure 120/70 mmHg, pulse 62, respiratory rate 70. Temperature normal Head: Head is atraumatic. Neck: Supple. Lungs: Decreased breath sounds at the bases. Heart: S1, S2 regular. No murmurs. Abdomen: Slightly distended and soft. Extremities: No edema. Peripheral pulses are 1+ bilaterally. /RECTAL: Not performed. Neurologic: The patient is awake and alert, appears to be oriented, communicating well. No significant deficits. LABORATORY DATA: White blood cell count slightly up to 14, hemoglobin 12. Chemistry showed creatinine ____ , slightly elevated blood urea nitrogen 24, creatinine clearance of . The ALT 48, AST is slightly at 302. IMPRESSION: 1. Zqc-bt-jidzjzab cardiac arrest secondary to primary ventricular fibrillation, possibly from acute myocardial infarction. 2. Acute non-ST segment elevation myocardial infarction. 3. Chronic kidney disease stage II. 4. Diabetes mellitus. 5. Hypertension. 6. Previous history of cardiac arrest, successful in 10/2023. RECOMMENDATIONS: 1. The patient should be continued on anticoagulation with aspirin. 2. Continue Plavix and also anticoagulant heparin for now. 3. Scheduled the patient for coronary angiogram and cardiac evaluation tomorrow for evaluation of myocardial infarction and sudden cardiac . The patient remained stable but critical. Spent more than 55 minutes of critical care time evaluating the patient and management. DT: 17:54:53 TT: 19:46:00 Ref: [id number] - TID: [id number]
[2024-11-20 08:18] LABS: Iron 41 mcg/dL (65-175); Percent Iron Saturation 15 % (20-55); Total Iron Binding Capacity 260 mcg/dL (250-425); Unsaturated Iron Binding 219 (225-295)
[2024-11-20] MEDS: LIDOCAINE 5% 1 PATCH TOP (08:22)
[2024-11-20] MEDS: PANTOPRAZOLE INJ 40 MG VIAL IVP (08:23)
[2024-11-20] MEDS: Magnesium Sulfate 2 GM Ivpb 2 GM/50 ML BAG IV (08:23)
[2024-11-20] MEDS: NITROGLYCERIN 0.4 MG SUBL BTL #25 SL (08:24)
[2024-11-20] MEDS: RINGERS LACTATED 1000 ML 500 ML 80 ML IV (08:24)
[2024-11-20] MEDS: CLOPIDOGREL BISULFATE 75 MG TABLET PO (08:48)
[2024-11-20] MEDS: ASPIRIN 81 MG CHEW PO (08:48)
--- NOTE | 2024-11-20 11:33 | PC.NURSE ---
at 0909, report given to blood bank laboratory professional for patient procedure, at 0940 pt taken via gurney with monitor to blood bank laboratory professional
[2024-11-20] MEDS: MORPHINE SULF INJ 10 MG/ML VIAL 4 MG IVP (11:36)
[2024-11-20] MEDS: ATORVASTATIN CALCIUM 20 MG TABLET 80 MG PO (13:28)
--- NOTE | 2024-11-20 13:34 | PC.SS ---
Update: Patient on [place]. 4L. P.O. feeding. Patient receiving IV antibiotics. Patient not receiving pressor support. Patient to obtain heart catherization today. Dr. Morales consulting. Patient possible ICU downgrade today.
[2024-11-20] MEDS: AMPICILLIN/SULBAC INJ 3 GM in SODIUM CHLORIDE 0.9% (POP) 100 ML IV ×2 (14:20→18:30)
[2024-11-20] MEDS: THIAMINE INJ 100 MG/ML VIAL 2 ML 200 MG IVP (14:21)
--- NOTE | 2024-11-20 15:42 | PC.CC ---
Addendum entered by Leslie Villegas RN 11/20/24 18:05: 1700 Dr. Shelby here to speak with family, family agrees to transfer all paperwork signed, TBA signed and faxed, chart printed CD's put in packet and given to charge nurse, transport set up eta is 1900 Addendum entered by Leslie Villegas RN 11/20/24 16:44: Went to get family signature for patient transfer, they state they do not want to sign anything until they speak with Dr. shelby, Dr. Shelby is aware and states he will be here in thirty minutes Addendum entered by Leslie Villegas RN 11/20/24 16:20: Patient is accepted to [facility] by Francheska under Dr. Sam FARLEY, patient is to go to room 329 report to be called to [phone] Addendum entered by Leslie Villegas RN 11/20/24 16:06: Francheska called back and connected to Dr. Shelby, CD being made Original Note: Francheska from [facility] called at this time asking about patient, she informed RN that patient was to be transferred to [facility] patient was accepted by Dr. Zhao, chart faxed to Francheska will wait for call back
--- NOTE | 2024-11-20 17:07 | ESPR_ITS ---
Documentation for date of: 11/20/24 Subjective Subjective Interval history: Patient is a 64-year-old male with a past medical history of hypertension and diabetes mellitus, prior history of cardiac arrest in 2023 brought into ED 11/18/24 after [id number] cardiac arrest. noticed the patient to be gasping for air, and called ambulance, CPR was initiated en route by EMS, patient was found to have V-fib, shock was given, in the emergency room patient was given epinephrine x 1, started on amiodarone, ROSC was achieved after 1 cycle of CPR, patient was intubated and started on mechanical ventilation. Patient later became hypotensive, after starting IV sedation, was started on Levophed, patient was admitted to ICU for further management. CT chest showed atelectasis of lower lobes bilaterally, severe ARDS. Cardiology is consulted for VFib and cardiogenic shock. Angiogram showed LAD occlusion and 80% lcx - referrred for CABG and accepted by Dr Zhao in [place]. Mentation back to baseline. He was downgraded to floors for tele to tele transfer most likely tomorrow. Exam Vital Signs Temp Pulse Resp BP Pulse Ox O2 Del Method O2 Flow Rate 98.3 F 46 L 17 144/67 H 92 L Nasal Cannula 4 11/20/24 14:03 11/20/24 15:30 11/20/24 15:30 11/20/24 15:30 11/20/24 15:30 11/20/24 14:03 11/20/24 14:03 FiO2 40 11/19/24 12:27 Narrative Exam General: Alert and oriented x2. No acute distress, Elderly male on 2L via NC HEENT: NCAT, No JVD noted. Mucosa moist. Pupils are equal and reactive to light bilaterally Cardiovascular: Normal S1 and S2. Regular rate and rhythm. Respiratory: Mild crackles bilaterally Abdomen: Soft, nontender, not distended, normal bowel sounds. Skin: Bilateral forearms covered in bandages, clean and dry. Musculoskeletal: No gross injuries. Able to move all 4 extremities. No pitting edema Neuro: Alert and oriented x2. No focal neuro deficits. Psych: Normal affect and mood Objective Labs 11/20/24 04:35 11/20/24 04:35 Labs: Laboratory Results - last 24 hr 11/20/24 11/20/24 11/20/24 01:31 04:35 09:13 WBC 8.7 D RBC 3.28 L Hgb 10.5 L D Hct 31.1 L MCV 95 MCH 32.0 MCHC 33.8 RDW Std Deviation 46.3 H Plt Count 87 L Neut % (Auto) 83 H Lymph % (Auto) 12 [place] % (Auto) 5 Eos % (Auto) 0 Baso % (Auto) 0 Neut # (Auto) 7.2 Lymph # (Auto) 1.0 [place] # (Auto) 0.4 Eos # (Auto) 0.0 Baso # (Auto) 0.0 Immature Gran # (Auto) 0.02 H Absolute Nucleated RBC 0.00 Immature Gran % 0 Nucleated RBC % 0 PT 12.6 H INR 1.2 APTT 46.9 H D 44.0 H Activated Clotting Time Sodium 145 Potassium 4.1 D Chloride 108 H Carbon Dioxide 26.4 Anion Gap 11 BUN 28 H Creatinine 1.3 Estim Creat Clear Calc 55.9 L eGFR > 60 BUN/Creatinine Ratio 22 H Glucose 204 H Calculated Osmolality 300 H Calcium 8.3 Corrected Calcium 8.9 Magnesium 2.0 Iron 41 L TIBC 260 Iron Saturation 15 L Unsat Iron Binding 219 L Total Bilirubin 1.5 H AST 103 H ALT 308 H Alkaline Phosphatase 62 Total Protein 4.9 L Albumin 3.2 L Globulin 1.7 L Albumin/Globulin Ratio 1.9 11/20/24 15:23 WBC RBC Hgb Hct MCV MCH MCHC RDW Std Deviation Plt Count Neut % (Auto) Lymph % (Auto) [place] % (Auto) Eos % (Auto) Baso % (Auto) Neut # (Auto) Lymph # (Auto) [place] # (Auto) Eos # (Auto) Baso # (Auto) Immature Gran # (Auto) Absolute Nucleated RBC Immature Gran % Nucleated RBC % PT INR APTT Activated Clotting Time 306.0 H Sodium Potassium Chloride Carbon Dioxide Anion Gap BUN Creatinine Estim Creat Clear Calc eGFR BUN/Creatinine Ratio Glucose Calculated Osmolality Calcium Corrected Calcium Magnesium Iron TIBC Iron Saturation Unsat Iron Binding Total Bilirubin AST ALT Alkaline Phosphatase Total Protein Albumin Globulin Albumin/Globulin Ratio ABG Interpretation ABG results: 11/18/24 11/18/24 11/19/24 02:47 05:11 04:45 ABG pH 7.21 L 7.30 L 7.36 ABG pCO2 54 H 48 49 H ABG pO2 108 114 H 170 H D ABG HCO3 21 24 27 H ABG O2 Saturation 97 98 99 H ABG Base Excess -7 L -3 1 Quality Measures Quality Measures VTE prophylaxis and none Advance care planning discussed with:: other Assessment & Plan Assessment Current Active Medications: Generic Name Dose Route Start Last Admin Trade Name Freq PRN Reason Stop Dose Admin Acetaminophen 1,000 mg 11/19/24 16:32 Acetaminophen 500 Mg Tablet PO 12/18/24 04:33 Q6H PRN Pain Or Fever > 99.9 Aspirin 81 mg 11/20/24 07:45 11/20/24 08:48 Aspirin 81 Mg Chew PO 12/20/24 07:44 81 mg QDAY MEG Administration Atorvastatin Calcium 80 mg 11/21/24 21:00 Atorvastatin Calcium 20 Mg Tablet PO 12/21/24 20:59 HS MEG Clopidogrel Bisulfate 75 mg 11/20/24 09:00 11/20/24 08:48 Clopidogrel Bisulfate 75 Mg Tablet PO 12/20/24 08:59 75 mg QDAY MEG Administration Dextrose 50 ml 11/18/24 05:11 Dextrose 50%-Water Inj 50 Ml Syringe IV 12/18/24 05:10 Q15MIN PRN BG <50 OR BG <70 & pt unresponsive Glucagon 1 mg 11/18/24 05:11 Glucagon Inj 1 Mg Vial IM Q15MIN PRN BG <70, and no IV access Ampicillin Sodium/Sulbactam 100 mls @ 200 mls/hr 11/20/24 12:00 11/20/24 14:20 Sodium 3 gm/ Sodium Chloride IV 11/27/24 11:59 200 mls/hr Q6HR MEG Administration Insulin Glargine 5 unit 11/20/24 21:00 Insulin Glargine (Lantus) 5 Unit/0.05 Ml (Per 5 Units) SC 12/20/24 20:59 HS MEG Insulin Human Lispro 0 unit 11/18/24 06:00 11/20/24 13:51 Insulin Lispro (Admelog) 1 Unit/0.01 Ml Unit SC 12/18/24 05:59 Not Given Q6HR [facility] Protocol Lorazepam 2 mg 11/20/24 10:55 Lorazepam 2 Mg/Ml Vial IV 11/25/24 10:54 Q2HR PRN CIWA SCORE 20-25 Lorazepam 1 mg 11/20/24 10:55 Lorazepam 0.5 Mg Tablet PO 11/25/24 10:54 Q4HR PRN CIWA SCORE 7-11 Lorazepam 1 mg 11/20/24 10:55 Lorazepam 2 Mg/Ml Vial IV 11/25/24 10:54 Q2HR PRN CIWA SCORE 16-19 Lorazepam 0.5 mg 11/20/24 10:55 Lorazepam 0.5 Mg Tablet PO 11/25/24 10:54 Q4HR PRN CIWA Score 2-6 Lorazepam 2 mg 11/20/24 10:55 Lorazepam 0.5 Mg Tablet PO 11/25/24 10:54 Q4HR PRN CIWA SCORE 12-15 Nitroglycerin 0.4 mg 11/20/24 07:32 11/20/24 08:24 Nitroglycerin 0.4 Mg Subl Btl #25 SL 0.4 mg Q5MIN PRN Administration CHEST PAIN Ondansetron HCl 4 mg 11/18/24 04:34 Ondansetron Inj 2 Mg/Ml Inj 2 Ml IV 12/18/24 04:33 Q6H PRN NAUSEA OR VOMITING Protocol Pantoprazole Sodium 40 mg 11/18/24 09:00 11/20/24 08:23 Pantoprazole Inj 40 Mg Vial IVP 12/18/24 08:59 40 mg QDAY MEG Administration Thiamine HCl 200 mg 11/20/24 14:00 11/20/24 14:21 Thiamine Inj 100 Mg/Ml Vial 2 Ml IVP 11/23/24 13:59 200 mg QDAY MEG Administration Plan Patient is a 64-year-old male with a past medical history of hypertension and diabetes mellitus, prior history of cardiac arrest in 2023 brought into ED 11/18/24 after [id number] cardiac arrest. He was downgraded to floors on 11/20/24 for tele to tele transfer most likely tomorrow. #Acute metabolic Encephalopathy-improving #Cardiac arrest s/p ROSC #VFib s/p shock x1 #Ischemic cardiomyopathy NSTEMI?resolving DDx: Chemical sedation, hypoxic brain injury found to have V-fib, shock was given, in the emergency room patient was given epinephrine x 1, started on amiodarone, ROSC was achieved after 1 cycle of CPR, patient was intubated and started on mechanical ventilation. CT head negative intracranial hemorrhage. Trop I : 0.269 --> 7.87 --> 4.89 TTE showed septal wall and left ventricle hypokinesis. Estimated EF 40%. Angiogram showed LAD occlusion and 80% lcx - referrred for CABG and accepted by Dr Zhao in [place]. -cardiology on board, appreciate recs -continue aspirin 81mg daily -hold Plavix and dc heparin drip per cardio -pending transfer #Transaminitis-improving AST peaked 950, ALT peaked 923. Downtrending now. Likely due to ischemia in setting of shock. U/s liver--Cholelithiasis, negative for cholecystitis -monitor daily labs #Aspiration PNA CTA: Negative for pulmonary artery emboli. Extensive bibasilar pneumonia. -Zosyn 4.5 g IV Q6 hourly [11/18 - 11/20] -De-escalated Zosyn to Unasyn 3 g IV Q6 hourly on [11/20? #Non insulin dependent T2DM Patient takes glipizide at home. Was prescribed insulin but has not been compliant. A1c 7.2 on this admission. -glargine 5units HS -SSI #Normocytic anemia Baseline Hb 11?12. Currently Hb 10.5. FE 41, TIBC 260. -follow up outpatient #YEN-resolved Health maintenance: Dispo: downgrade to tele 11/20, pending transfer for CABG FEN: low carb, cadiac DVT prophylaxis: Subcu heparin CODE STATUS: Full code The patient's management plan was discussed with my attending physician Dr. Cruz. Constance Aparicio, PGY-1 Attending Provider Attestation/Addendum I have examined the patient, reviewed labs and imaging findings, discussed the case with the resident(s), and reviewed entered orders. I agree with the plan of care as outlined in this note. Dr. Nancy MD
--- NOTE | 2024-11-20 17:40 | ESDS_ITS ---
Planned Discharge Date 11/20/24 DS: Providers Provider Date of admission: 11/18/24 04:27 Primary care physician: Michel Mendoza Admitting Provider: Hudson Messina MD Attending Provider on Admission: Pb Cedillo MD Consults: 11/18/24 04:42 Consult to Cardiology Stat Comment: CARDIAC ARREST Consulting Provider: Mally Morales 11/19/24 16:30 Referral Registered Dietitian Routine Comment: TF 11/20/24 07:00 Speech [Referral - ACCOUNT SERVICES ASSOCIATE [employer]] Routine Comment: 11/20/24 16:55 Referral - Electronics Engineering Professor Stat Service Needed for Transfer: Interventional Cardiology Addl Comments:: [facility] - Dr Zeb Zhao Attending Provider on DC: Honorio Cruz MD Discharging Provider: Honorio Cruz MD DS: Diagnosis Problem List Completed Was Problem List Reviewed/Reconciled?: Yes Hospital Course Hospital Course Hospital course: Patient is a 64-year-old male with a past medical history of hypertension and diabetes mellitus, prior history of cardiac arrest in 2023 brought into [facility] ED 11/18/24 after [id number] cardiac arrest. noticed the patient to be gasping for air, and called ambulance, CPR was initiated en route by EMS, patient was found to have V-fib, shock was given, in the emergency room patient was given epinephrine x 1, started on amiodarone, ROSC was achieved after 1 cycle of CPR, patient was intubated and started on mechanical ventilation. Patient later became hypotensive, after starting IV sedation, was started on Levophed. He was admitted to ICU for further management. He was intubated at admission. The patient had hypoxic encephalopathy and was unconscious on admission. After extubation on 11/19, his mentation improved and is back to baseline. CT chest showed atelectasis of lower lobes bilaterally, severe ARDS. In house cardiology Dr. Morales was consulted for VFib and cardiogenic shock. Angiogram showed LAD occlusion and 80% lcx. Troponins peaked at 7.87, TTE showed septal wall and left ventricle hypokinesis. Estimated EF 40%. Requested transfer to [place] for CABG and accepted by Dr Zhao. Heparin drip was discontinued and held patient's Plavix. Currently on Unasyn due to aspiration pneumonia. The patient's management plan was discussed with my attending physician Dr. Cruz. Constance Aparicio, PGY-1 Time Spent with Patient Time attestation: Total time spent providing and/or coordinating discharge services: Time spent: Greater than 30 minutes Exam Vital Signs Temp Pulse Resp BP Pulse Ox O2 Del Method O2 Flow Rate 98.3 F 49 L 22 H 121/70 93 L Nasal Cannula 4 11/20/24 16:00 11/20/24 17:00 11/20/24 17:00 11/20/24 17:00 11/20/24 17:00 11/20/24 16:00 11/20/24 16:00 FiO2 40 11/19/24 12:27 Narrative Exam General: Alert and oriented x2. No acute distress, Elderly male on 2L via NC HEENT: NCAT, No JVD noted. Mucosa moist. Pupils are equal and reactive to light bilaterally Cardiovascular: Normal S1 and S2. Regular rate and rhythm. Respiratory: Mild crackles bilaterally Abdomen: Soft, nontender, not distended, normal bowel sounds. Skin: Bilateral forearms covered in bandages, clean and dry. Musculoskeletal: No gross injuries. Able to move all 4 extremities. No pitting edema Neuro: Alert and oriented x2. No focal neuro deficits. Psych: Normal affect and mood Discharge Plan Plan Patient Disposition: Xfer Other Prescriptions/Referrals Prescriptions/Med Rec: No Action Lisinopril/Hydrochlorothiazide * (PRINZIDE *) 1 TAB tablet 10 mg PO QAM Qty: 0 clopidogrel 75 mg Tablet 75 mg PO QDAY Qty: 30 0RF aspirin 81 mg Tablet,Delayed Release (Dr/Ec) 81 mg PO QDAY Qty: 30 0RF metformin 1,000 mg tablet 1,000 mg PO BID Qty: 60 0RF insulin degludec [Tresiba FlexTouch U-100] 100 unit/mL (3 mL) insulin pen 20 unit subcut QDAY Qty: 15 1RF (DME) pen needle, diabetic 31 gauge x 1/4 needle See Rx Instructions .Route Qty: 100 0RF Rx Instructions: Use to inject one a day Referrals: Michel Mendoza [Primary Care Provider] - Patient/Caregiver Discharge Instructions Print Language: Irish Stand Alone Forms: Tania Award Info., Patient Portal Info Letter Quality Discharge Quality Measures VTE prophylaxis MD Attestestation MD Attestation I have examined the patient, reviewed labs and imaging findings, discussed the case with the resident(s), and reviewed entered orders. I agree with the plan of care as outlined in this note. Time Spent: [address] Nancy MD
[2024-11-20] MEDS: ACETAMINOPHEN 500 MG TABLET 1000 MG PO (19:24)
--- NOTE | 2024-11-20 19:27 | PC.NURSE ---
EMS arrived at 1909. left at 1926. [facility] contacted for ETA.
--- NOTE | 2024-11-20 19:34 | PC.NURSE ---
at 1754, gave report to kye at [facility], all questions answered, patient being transfered for cardiothoracic surgery
--- NOTE | 2024-11-22 07:48 | ESOP_ITS ---
RE: GABRIEL CARDOSO : 1960 DATE OF OPERATION: 11/20/2024 PROCEDURES PERFORMED: 1. Diagnostic left heart cardiac catheterization, selective coronary angiogram, left ventricular angiogram, CPT 08392. 2. Unsuccessful angioplasty of the left anterior descending artery, mid LAD 100% occlusion, inability to cross the lesion with a guidewire, CPT 46792. 3. Selective left subclavian angiogram and internal mammary angiogram. 4. Conscious sedation 30 minutes duration. 5. Ultrasound guidance access, right femoral artery. 6. Iliofemoral angiogram followed Angioseal deployment. DIAGNOSES: Acute myocardial infarction, non-ST elevation myocardial infarction with cardiac arrest, primary ventricular fibrillation and sudden cardiac survival. HISTORY AND INDICATIONS: The patient is a 64-year-old unfortunate male with history of hypertension and hypercholesterolemia who was admitted to the hospital in 10/2023 after [id number] cardiac arrest and acute myocardial infarction with _ and subsequently did well on medical management, did not have any intervention or cardiac catheterization at that time. Came back to the hospital again on 11/18/2024 with [id number] witnessed cardiac arrest at home, 30 minutes of CPR was performed, brought to the emergency room. One round of AP was given. Successfully resuscitated, intubated on mechanical ventilation. After 24 hours, he was successfully extubated and alert and awake and enzyme elevation was significant, NSTEMI, troponin was significantly elevated up to 7 and came down to 4 and because of persistent chest pain, coronary angiogram was recommended to assess the patient is a candidate for revascularization and intervention. Cardiac echo showed moderate LV dysfunction, EF 40%, anterolateral apical hypokinesis. DESCRIPTION OF PROCEDURE: The patient was brought to cardiac catheterization laboratory. He was given 1 mg of Versed and 4 mg of morphine for analgesia. Right radial approach was initially taken. Right radial artery was punctured, but unable to pass the guidewire because of calcification, small vessel. Right femoral approach was taken. Right femoral artery was cannulated with micropuncture technique with ultrasound guidance and fluoroscopy and 5-Montenegrin sheath was introduced. Selective right and left coronary angiogram performed by 5-Montenegrin FR4 and JL4 diagnostic catheter. Left heart catheterization, left ventricular angiogram performed by 5-Montenegrin pigtail catheter. Subsequently, intervention was undertaken because of total occlusion of LAD. Diagnostic procedure showed following findings. Hemodynamics: Left ventricular pressure was 120 systolic and 20 diastolic. EDP was 24. Aortic pressure was 120/80. No gradient across the aortic valve. Left ventricular angiogram showed evidence of anteroapical hypokinesis, moderate to severe anterolateral apical hypokinesis, ejection fraction well preserved 45% to 50%. Coronary angiogram showed following findings. Right coronary artery large and dominant showed mild calcification of the right coronary artery and mild diffuse plaque with 30% narrowing in the proximal segment. No significant stenosis. PDA and PL branches are normal. Left coronary system: Left main coronary artery showed _ no significant stenosis. Left anterior descending artery showed heavy calcification and there is evidence of a total occlusion of the mid left anterior descending artery after diagonal branch and first septal branch and there is at least 4 cm long occlusion, mid and distal LAD filled via left to left collaterals. Left circumflex artery showed heavy calcification. Proximal left circumflex artery showed what appears to be very eccentric hazy calcified 80% stenosis. This gives one large obtuse marginal branch. Left internal mammary artery, left subclavian artery are free disease. Interventions details are as follows: The patient was given IV heparin 6000 units, ACT 300. Proceeded with 6-Montenegrin and 6-Montenegrin EBU 3.5 guiding catheter used to cannulate the left main coronary artery. A 0.014 inch run-through guidewire was tried to cross the lesion. There was buckling, no support, heavy calcification, what appears to be a total occlusion. I attempted to cross the lesion again with a Applications Engineering Manager 50 guidewire. After multiple attempts, I was not able to cross the lesion with heavily calcified chronic total occlusion, possibly [id number]. Decided not to proceed any further and recommending bypass graft surgery, cardiac thoracic surgery consultation. SUMMARY OF FINDINGS: 1. Severe double vessel coronary artery disease, evidence of chronic total occlusion of the left anterior descending artery, mid LAD 100% occlusion and severe 80% stenosis of the proximal circumflex artery with a diagnosis of acute NSTEMI. 2. Mild LV dysfunction, ejection fraction 45% to 50%. 3. Unsuccessful angioplasty, PTCA of the left anterior descending artery, unable to cross the lesion successfully. Pre-procedure stenosis was 100%. Post procedure stenosis was 100% due to inability to cross the lesion. KG flow was 1 via collateral. Angioseal was deployed successfully. RECOMMENDATIONS: The patient has several out of hospital cardiac arrest two times now, this time in NSTEMI and has a chronic occlusion of the LAD, which is possibly occluded for one year, but there is excellent collaterals. The distal vessel appears to be decent. Circumflex artery is large vessel and proximal occlusion 80% to 90%. I am recommending bypass graft surgery x2, LAUGHLIN to LAD, vein graft to circumflex artery and afterwards 90 days later to repeat the nuclear imaging and if persistent ischemia, the patient may require ICD implantation for now. Ejection fraction is normal, but the patient will require revascularization before recommending ICD implantation. If the patient cannot be revascularized, he will require ICD implantation, but for now, because of NSTEMI and multivessel disease, I would recommend revascularization with MACAlfonso DT: 13:02:57 TT: 13:58:00 Ref: [id number] - TID: [id number] MTDD
== END 2024-11-20 19:27 | disposition other institution (70) | DRG 280 ==
LOC: SERX 03:51 → SERHOLD 05:08 → S2SX 06:00
PROVIDERS: Internal Medicine Cardiovascular Disease; Student in an Organized Health Care Education/Training Program; Admitting Provider Student in an Organized Health Care Education/Training Program; Emergency Provider Emergency Medicine; PCP Family Medicine; Visit Provider Internal Medicine
DX: I21.4 Non-ST elevation (NSTEMI) myocardial infarction (principal); G93.41 Metabolic encephalopathy; I49.01 Ventricular fibrillation; R57.0 Cardiogenic shock; J80 Acute respiratory distress syndrome; J69.0 Pneumonitis due to inhalation of food and vomit; K72.00 Acute and subacute hepatic failure without coma; I46.2 Cardiac arrest due to underlying cardiac condition; J98.11 Atelectasis; E87.20 Acidosis, unspecified; N17.9 Acute kidney failure, unspecified; G93.1 Anoxic brain damage, not elsewhere classified; I12.9 Hypertensive chronic kidney disease with stage 1 through stage 4 chronic kidney disease, or unspecified chronic kidney disease; N18.2 Chronic kidney disease, stage 2 (mild); E11.22 Type 2 diabetes mellitus with diabetic chronic kidney disease; D64.89 Other specified anemias; D69.59 Other secondary thrombocytopenia; I25.5 Ischemic cardiomyopathy; D63.1 Anemia in chronic kidney disease; E88.09 Other disorders of plasma-protein metabolism, not elsewhere classified; E78.00 Pure hypercholesterolemia, unspecified; D69.6 Thrombocytopenia, unspecified; K80.20 Calculus of gallbladder without cholecystitis without obstruction; I25.10 Atherosclerotic heart disease of native coronary artery without angina pectoris; Z91.199 Patient's noncompliance with other medical treatment and regimen due to unspecified reason; Z79.02 Long term (current) use of antithrombotics/antiplatelets; Z79.4 Long term (current) use of insulin; Z79.82 Long term (current) use of aspirin; Z79.84 Long term (current) use of oral hypoglycemic drugs; I25.2 Old myocardial infarction
CPT/HCPCS: 36415; 36600; 70450; 71045; 71275; 76705; 80048; 80053; 80061; 80069; 80076; 81001; 82803; 83540; 83550; 83605; 83690; 83735; 83880; 84100; 84443; 84484; 85025; 85347; 85610; 85730; 87077; 87081; 87186; 87205; 93005; 93306; 94002; 94003; 94660; 96361; 96374; 96376; 99152; 99153; 99291; A4314; A4649; A4699; C1725; C1760; C1769; C1887; C1894; J0171; J0283; J0295; J0461; J0613; J1265; J1643; J1644; J1815; J2060; J2250; J2251; J2270; J2310; J2371; J2470; J2543; J2704; J3010; J3411; J3475; J3490; J7030; J7040; J7120; Q9967; A9270; J2305